=== PATIENT | female | born 1950 | race Hispanic/Latino ===

== ENCOUNTER 2016-08-20 20:37 | Inpatient (IN) | payer OTHER, MEDICARE ==
[2016-08-20 20:59] LABS: BASO # 0.1 K/uL (0.0-0.2); BASO % 1.3 % (0.0-2.0); EOS % 0.3 % (0.0-4.0); HEMOGLOBIN 11.9 g/dL (11.0-16.0); LYMPH # 2.1 K/uL (1.0-4.3); LYMPH % 20.7 % (20.0-40.0); MEAN CELL VOLUME 98.6 fL (81.0-99.0); MEAN CORPUSCULAR HEMOGLOBIN 33.5 pg (27.0-31.0); MEAN CORPUSCULAR HGB CONC 33.9 g/dL (33.0-37.0); MEAN PLATELET VOLUME 8.1 fL (7.2-11.7); MONO # 0.5 K/uL (0.0-0.8); MONO % 5.4 % (0.0-10.0); NEUT # 7.3 K/uL (1.8-7.0); NEUT % 72.3 % (50.0-75.0); RBC 3.55 Mil/uL (3.80-5.20); RED CELL DISTRIBUTION WIDTH 13.1 % (11.5-14.5)
--- NOTE | 2016-08-20 21:01 | C.PDOC ---
History Of Present Illness 66 y/o with Hx of Psych illness brought to ED by ALS with complaints of mid sternal chest pain while eating dinner with associated diaphoresis, nausea and sob. Pain is rated 9/10 and patient states never having this pain before. Patient states pain was persistent and called 911 for help. Patient reports taking 4 baby aspirin [employer]. Patient is a past smoker and quit 02/28/16 and denies past cardiac disease or lung disease. Patient denies fever, chills, v/d or any other complaints at this time. Time Seen by Provider: 08/20/16 20:46 Chief Complaint (Nursing): Chest Pain History Per: Patient History/Exam Limitations: no limitations Onset/Duration Of Symptoms: Hrs Current Symptoms Are (Timing): Still Present Past Medical History Reviewed: Historical Data, Nursing Documentation, Vital Signs Vital Signs: Last Vital Signs Temp 98.5 F 08/20/16 21:02 Pulse 66 08/20/16 21:02 Resp 16 08/20/16 21:02 BP 144/55 L 08/20/16 21:02 Pulse Ox 100 08/20/16 21:09 - Medical History PMH: Bipolar Disorder, Depression Family History: States: No Known Family Hx - Social History Hx Alcohol Use: Yes Hx Substance Use: No Review Of Systems Except As Marked, All Systems Reviewed And Found Negative. Constitutional: Positive for: Sweats. Negative for: Fever, Chills Cardiovascular: Positive for: Chest Pain. Negative for: Palpitations Respiratory: Positive for: Shortness of Breath Gastrointestinal: Positive for: Nausea. Negative for: Vomiting, Diarrhea Skin: Negative for: Rash Physical Exam - Physical Exam Appears: Other (Uncomfortable, In pain) Skin: Normal Color, Warm Head: Atraumatic, Normacephalic Chest: Symmetrical, Tenderness (Midsternal chest ) Cardiovascular: Rhythm Regular, No Murmur Respiratory: Normal Breath Sounds, No Rales, No Rhonchi, Wheezing (Mild Wheezing ) Gastrointestinal/Abdominal: Soft, Tenderness (Upper abdomen Tenderness), No Guarding, No Rebound Extremity: Normal ROM, Capillary Refill (<2 seconds) Neurological/Psych: Oriented x3, Normal Speech ED Course And Treatment - Laboratory Results Result Diagrams: 08/20/16 20:51 08/20/16 20:51 Lab Interpretation: No Acute Changes ECG: Interpreted By Me ECG Rhythm: Sinus Rhythm ECG Interpretation: Normal Rate From EC (bpm) O2 Sat by Pulse Oximetry: 100 (ra) Pulse Ox Interpretation: Normal Progress Note: Patient continues to have chest pain after NTG SL. repeat EKG unchanged. Morphine 1mg IV ordered. Reevaluation Time: 22:07 Reassessment Condition: Improved - Physician Consult Information Time Consulting Physician Contacted: 22:07 Physician Contacted: Iraida Balbuena Outcome Of Conversation: Patient to be admitted for chest pain observation. Disposition - Disposition Disposition: HOSPITALIZED Disposition Time: 22:08 Condition: IMPROVED - POA Present On Arrival: None - Clinical Impression Clinical Impression: Chest pain - Scribe Statement The provider has reviewed the documentation as recorded by the Scribe Stew Gong All medical record entries made by the Melissaibe were at my direction and personally dictated by me. I have reviewed the chart and agree that the record accurately reflects my personal performance of the history, physical exam, medical decision making, and the department course for this patient. I have also personally directed, reviewed, and agree with the discharge instructions and disposition.
[2016-08-20 21:07] LABS: ALBUMIN 4.1 g/dL (3.5-5.0)
[2016-08-20 21:10] LABS: GFR AFRICAN-AMERICAN > 60; GFR NON-AFRICAN AMERICAN > 60
[2016-08-20 21:11] LABS: ALB/GLOB RATIO 1.3 (1.0-2.1); ALT/SGPT 33 U/L (9-52); AST/SGOT 25 U/L (14-36); BLOOD UREA NITROGEN 26 mg/dL (7-17); CALCIUM 8.9 mg/dl (8.6-10.4)
[2016-08-20 21:12] LABS: HDL CHOLESTEROL 54 mg/dL (30-70)
[2016-08-20 21:20] LABS: CK-MB 1.16 ng/mL (0.0-3.38)
[2016-08-20 21:25] LABS: LDL CHOLESTEROL 158 mg/dL (0-129)
[2016-08-21 05:48] LABS: FREE T4 0.58 ng/dL (0.78-2.19)
[2016-08-21] MEDS ORDERED: QUEtiapine 200 mg XR Tab PO SCH (10:00)
[2016-08-21 10:02] LABS: TROPONIN I 9.88 ng/mL (0.00-0.120)
[2016-08-21] MEDS ORDERED: Heparin25000 units/250ml 1/2NS 25,000 UNITS/250 ML BAG IV PRN (10:27)
--- NOTE | 2016-08-21 10:36 | RAD ---
HISTORY: chest pain COMPARISON: No prior. FINDINGS: LUNGS: Diffuse increased interstitial lung markings. Biapical pleural thickening. Right hilar prominence. PLEURA: No significant pleural effusion identified, no pneumothorax apparent. CARDIOVASCULAR: Normal. OSSEOUS STRUCTURES: Postsurgical changes in the cervical spine. Degenerative changes in the thoracic spine. VISUALIZED UPPER ABDOMEN: Normal. OTHER FINDINGS: None. IMPRESSION: Diffuse increased interstitial lung markings. Biapical pleural thickening. Right hilar prominence.
--- NOTE | 2016-08-21 10:41 | CP.PCM.CON ---
<Brit Morales - Last Filed: 08/21/16 19:01> History of Present Illness - History of Present Illness History of Present Illness: ICU Consult Note Reason for consult: Elevated troponin 66F PMHx of anxiety, bipolar, MDD, mitrala valve prolapse presented with chest pain that started the night before when patient was eating dinner. She reported pain was 10/10 felt like an accordian squeezing and radiated to both arms b/l and down her back. Patient had 2 episodes of nonbloody nonbilious emesis and patient had associated diaphoresis. Patient was brought in by ALS and admitted to TELE. Patient's troponin on admission was negative but 4am troponin was 9.88 which is why patient was started on heparin gtt and moved to ICU. Patient's repeat troponin is 5.0800. EKG showed sinus rhythm with inferior and lateral t- wave inversions suggestive of ischemia and stat echo done showed EF 45-50%, infero-posterior hypokinesia, mild mr, Grade 1 Diastolic dysfunction. Patient admitted to 40 year tobacco abuse in the past and quit 2014. She denied history of HTN or hyperlipidemia. Patient was seen by Dr. Katz and is to be transferred to [facility] [place] in the AM 08/22 for cath and PCI. Currently patient is resting in bed and comfortably. Patient is on heparin gtt and nitroglycerin gtt. She denies any acute chest pain but is complaining of headaches. ROS negative for dizziness, blurry vision, ringing of the ears, chest pain, palpitations, SOB, cough, abd pain, nausea, vomiting, bowel/bladder complaints, pain/swelling in her legs b/l. 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 ROS negative for dizziness, blurry vision, ringing of the ears, chest pain, palpitations, SOB , cough, abd pain, nausea, vomiting, bowel/bladder complaints, pain/swelling in her legs b/l. Review of Systems - Constitutional Constitutional: As Per HPI, Headache. absent: Chills, Fever - EENT Eyes: As Per HPI. absent: Blurred Vision Ears: As Per HPI. absent: Tinnitus, Dizziness Nose/Mouth/Throat: As Per HPI. absent: Sore Throat - Cardiovascular Cardiovascular: As Per HPI. absent: Chest Pain, Dyspnea, Palpitations - Respiratory Respiratory: As Per HPI. absent: Cough, Dyspnea, Chest Congestion - Gastrointestinal Gastrointestinal: As Per HPI. absent: Abdominal Pain, Constipation, Diarrhea, Nausea, Vomiting - Genitourinary Genitourinary: As Per HPI. absent: Dysuria, Hematuria - Musculoskeletal Musculoskeletal: As Per HPI, Neck Pain. absent: Numbness, Tingling - Integumentary Integumentary: As Per HPI. absent: Rash - Neurological Neurological: As Per HPI, Headaches. absent: Dizziness, Tingling - Psychiatric Psychiatric: As Per HPI, Anxiety, Depression - Endocrine Endocrine: As Per HPI. absent: Palpitations, Polydipsia, Polyphagia, Polyuria - Hematologic/Lymphatic Hematologic: As Per HPI. absent: Easy Bleeding, Easy Bruising, Lymphadenopathy Past Patient History - Past Medical History & Family History Past Medical History?: Yes - Past Social History Smoking Status: Former Smoker - CARDIAC Hx Mitral Valve Prolapse: Yes - PULMONARY Hx Respiratory Disorders: No - NEUROLOGICAL Hx Neurological Disorder: No - HEENT Hx HEENT Problems: No - RENAL Hx Chronic Kidney Disease: No - ENDOCRINE/METABOLIC Hx Endocrine Disorders: No - HEMATOLOGICAL/ONCOLOGICAL Hx Blood Disorders: No - INTEGUMENTARY Hx Dermatological Problems: No - MUSCULOSKELETAL/RHEUMATOLOGICAL Hx Falls: Yes - GASTROINTESTINAL Hx Clostridium Difficile: Yes Hx Gall Bladder Disease: Yes - GENITOURINARY/GYNECOLOGICAL Hx Genitourinary Disorders: No - PSYCHIATRIC Hx Substance Use: No - SURGICAL HISTORY Hx Cholecystectomy: Yes Hx Musculoskeletal Surgery: Yes (SPINE Sx.2007 and 2009) Other/Comment: Partial Colectomy.03-06-14,Reversal Colon 06/2014,Rt. Hernia Sx 2010,Rt. Rotator Cuff Sx .Left labrial Sx (Left Arm )2010, - ANESTHESIA Hx Anesthesia: Yes Hx Anesthesia Reactions: No Hx Malignant Hyperthermia: No Has any member of the family had a problem w/ anesthesia?: No Meds Allergies/Adverse Reactions: Allergies Allergy/AdvReac Type Severity Reaction Status Date / Time No Known Allergies Allergy Unverified 08/20/16 20:42 - Medications Medications: Current Medications Clonazepam (Klonopin) 0.5 mg PO Q8H [facility] Last Admin: 08/21/16 08:45 Dose: 0.5 mg Heparin Sodium (Porcine) (Heparin) 5,000 units SC Q12 [facility] Heparin Sodium/Sodium Chloride (Heparin 28796 Units/250ml 1/2 Normal Saline) 25 ,000 units in 250 mls @ 8.981 mls/hr IV .Q24H PRN; Protocol; 12 UNITS/KG/HR PRN Reason: PROTOCOL Nitroglycerin (Nitrostat Sl Tab) 0.4 mg SL Q5M PRN PRN Reason: Pain, Mild (1-3) Last Admin: 08/20/16 21:05 Dose: 0.4 mg Quetiapine Fumarate (Seroquel Xr) 600 mg PO DAILY [facility] Trazodone HCl (Desyrel) 100 mg PO HS [facility] Last Admin: 08/21/16 09:17 Dose: Not Given Venlafaxine HCl (Effexor Xr) 75 mg PO DAILY [facility] Physical Exam - Constitutional Appears: Well, Non-toxic - Head Exam Head Exam: ATRAUMATIC, NORMAL INSPECTION, NORMOCEPHALIC - Eye Exam Eye Exam: EOMI, Normal appearance, PERRL. absent: Conjunctival injection, Scleral icterus Pupil Exam: NORMAL ACCOMODATION - ENT Exam ENT Exam: Mucous Membranes Moist - Neck Exam Neck exam: Positive for: Normal Inspection - Respiratory Exam Respiratory Exam: Clear to Auscultation Bilateral, NORMAL BREATHING PATTERN. absent: Accessory Muscle Use, Rales, Rhonchi, Wheezes, Respiratory Distress - Cardiovascular Exam Cardiovascular Exam: REGULAR RHYTHM, RRR, +S1, +S2. absent: Systolic Murmur - GI/Abdominal Exam GI & Abdominal Exam: Normal Bowel Sounds, Soft. absent: Firm, Guarding, Rigid, Tenderness - Extremities Exam Extremities exam: Positive for: normal capillary refill, normal inspection, pedal pulses present. Negative for: pedal edema, tenderness - Back Exam Back exam: NORMAL INSPECTION. absent: rash noted, tenderness - Neurological Exam Neurological exam: Alert, CN II-XII Intact, Oriented x3 - Psychiatric Exam Psychiatric exam: Normal Affect, Normal Mood - Skin Skin Exam: Dry, Intact, Normal Color, Warm Results - Vital Signs Recent Vital Signs: Last Vital Signs Temp 98.2 F 08/21/16 04:00 Pulse 59 L 08/21/16 08:00 Resp 20 08/21/16 04:00 BP 105/64 08/21/16 04:00 Pulse Ox 95 08/20/16 23:05 - Labs Result Diagrams: 08/21/16 12:34 08/21/16 12:34 Labs: Laboratory Results - last 24 hr 08/21/16 08/21/16 04:31 04:31 Troponin I 9.8800 H* Triglycerides 62 D Cholesterol 252 H LDL Cholesterol Direct 163 H HDL Cholesterol 63 Free T4 0.58 L TSH 3rd Generation 0.53 Assessment & Plan - Assessment and Plan (Free Text) Assessment: 66F PMHx of anxiety, bipolar, MDD, mitrala valve prolapse presented with chest pain that started the night before. Transferred to ICU for elevated troponin. Plan: Neuro -AO x 3 -hx of headaches -Tylenol 650mg po q6 prn h/a Cardiovascular -NSTEMI -Troponin 9.88--> 5.080 -EKG: sinus rhythm with inferior and lateral t-wave inversions suggestive of ischemia -Echo: EF 45-50%, infero-posterior hypokinesia, mild mr, Grade 1 Diastolic dysfunction -Elevated Lipid panel T Cholesterol: 252 LDL: 163 HDL: 63 -Thyroid studies WNL -T4: 0.58 -TSH: 0.53 -Patient for transfer to [facility] [place] tomorrow 08/22 for cath and PCI -ASA 81mg po dialy -Coreg 3.125mg po bid -Heparin gtt -Nitro gtt -Brilinta 90mg po bid -Crestor 20mg po hs -Dr. Katz cardio following Pulm -no acute issues -breathing spontaneously on NC 2L GI -no acute issues Heme -no acute issues -PT/INR ordered for AM Renal -no acute issues Endo -no acute issues -HgbA1c 5.8 Psych -hx of MDD, bipolar, anxiety -Effexor xr 75mg po daily -Trazodone 100mg po hs -Seroquel 600mg po hs -Clonazepam 0.5mg po q8 GI ppx: Pepcid 20mg po bid VTE ppx: Heparin gtt; SCD c/i until patient venous dopplers done Code Status: full code Case discussed with Dr. Marge Morales PGY2 <Matt Bird - Last Filed: 08/21/16 20:47> Meds - Medications Medications: Current Medications Acetaminophen (Tylenol 325mg Tab) 650 mg PO Q6 PRN PRN Reason: Headache Last Admin: 08/21/16 17:46 Dose: 650 mg Aspirin (Aspirin Chewable) 81 mg PO DAILY [facility] Carvedilol (Coreg) 3.125 mg PO BID [facility] Clonazepam (Klonopin) 0.5 mg PO Q8H [facility] Last Admin: 08/21/16 14:57 Dose: 0.5 mg Famotidine (Pepcid) 20 mg PO BID [facility] Last Admin: 08/21/16 17:48 Dose: 20 mg Heparin Sodium/Sodium Chloride (Heparin 99746 Units/250ml 1/2 Normal Saline) 25 ,000 units in 250 mls @ 8.981 mls/hr IV .Q24H PRN; Protocol; 12 UNITS/KG/HR PRN Reason: PROTOCOL Last Admin: 08/21/16 10:55 Dose: 12 units/kg/hr, 8.981 mls/hr Nitroglycerin/Dextrose (Nitroglycerin 50 Mg/250 Ml D5w) 50 mg in 250 mls @ 7.5 mls/hr IV .Q24H [facility]; 25 MCG/MIN PRN Reason: Protocol Last Admin: 08/21/16 12:00 Dose: 25 mcg/min, 7.5 mls/hr Morphine Sulfate (Morphine) 1 mg IV ONCE ONE Stop: 08/21/16 20:46 Nitroglycerin (Nitrostat Sl Tab) 0.4 mg SL Q5M PRN PRN Reason: Pain, Mild (1-3) Last Admin: 08/21/16 11:40 Dose: 0.4 mg Quetiapine Fumarate (Seroquel Xr) 600 mg PO HS [facility] Rosuvastatin Calcium (Crestor) 20 mg PO HS [facility] Ticagrelor (Brilinta) 90 mg PO BID [facility] Trazodone HCl (Desyrel) 100 mg PO HS [facility] Last Admin: 08/21/16 09:17 Dose: Not Given Venlafaxine HCl (Effexor Xr) 75 mg PO DAILY [facility] Last Admin: 08/21/16 11:00 Dose: Not Given Results - Vital Signs Recent Vital Signs: Last Vital Signs Temp 97.4 F L 08/21/16 16:00 Pulse 69 08/21/16 18:30 Resp 11 L 08/21/16 18:30 BP 128/79 08/21/16 18:17 Pulse Ox 97 08/21/16 18:30 - Labs Result Diagrams: 08/21/16 12:34 08/21/16 12:34 Labs: Laboratory Results - last 24 hr 08/21/16 08/21/16 08/21/16 12:34 12:34 18:57 WBC 7.6 RBC 3.67 L Hgb 12.1 Hct 36.4 MCV 99.2 H MCH 33.1 H MCHC 33.3 RDW 13.2 Plt Count 253 MPV 8.2 APTT 73 H D Sodium 137 Potassium 3.6 Chloride 101 Carbon Dioxide 29 Anion Gap 11 BUN 16 Creatinine 0.5 L Est GFR ( Amer) > 60 Est GFR (Non-Af Amer) > 60 Random Glucose 89 Calcium 8.8 Phosphorus 3.6 Magnesium 2.0 Total Bilirubin 0.4 AST 63 H D ALT 29 Alkaline Phosphatase 79 Total Creatine Kinase CK-MB (Mass) Troponin I 5.0800 H* Troponin I, Quant Total Protein 6.7 Albumin 3.7 Globulin 3.1 Albumin/Globulin Ratio 1.2 TSH 3rd Generation 0.98 08/21/16 18:57 WBC RBC Hgb Hct MCV MCH MCHC RDW Plt Count MPV APTT Sodium Potassium Chloride Carbon Dioxide Anion Gap BUN Creatinine Est GFR ( Amer) Est GFR (Non-Af Amer) Random Glucose Calcium Phosphorus Magnesium Total Bilirubin AST ALT Alkaline Phosphatase Total Creatine Kinase 272 H CK-MB (Mass) 14.1 H Troponin I Troponin I, Quant 3.5300 H* Total Protein Albumin Globulin Albumin/Globulin Ratio TSH 3rd Generation Attending/Attestation - Attestation I have personally seen and examined this patient.: Yes I have fully participated in the care of the patient.: Yes I have reviewed all pertinent clinical information: Yes Notes (Text): 08/21/16 20:47 Today: July The Patient was seen and examined at the bedside, Medical records reviewed, all clinical/lab/hemodynamic/radiographic data were reviewed and management issues were discussed and formulated, Events reviewed Pain issues, skin care, head of the bed elevation, glycemic control were addressed. Agree with above treatment plans as transcribed in Dr. Brit holliday
[2016-08-21] MEDS: Venlafaxine 75 mg ER Cap PO SCH (11:00)
--- NOTE | 2016-08-21 11:50 | CP.PCM.PN ---
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 Pt seen and examined today c/o sub sternal chest pain describes pressure like pain scale 7/10 , non radiating, denies any sob, dizziness, palpitations , diaphoresis, N/V Objective - Vital Signs/Intake and Output Vital Signs (last 24 hours): Temp Pulse Resp BP Pulse Ox 98.2 F 59 L 20 105/64 95 08/21/16 04:00 08/21/16 08:00 08/21/16 04:00 08/21/16 04:00 08/20/16 23:05 Intake and Output: 08/21/16 08/21/16 06:59 18:59 Intake Total 120 Balance 120 - Medications Medications: Current Medications Clonazepam (Klonopin) 0.5 mg PO Q8H [facility] Last Admin: 08/21/16 08:45 Dose: 0.5 mg Heparin Sodium (Porcine) (Heparin) 5,000 units SC Q12 [facility] Last Admin: 08/21/16 10:49 Dose: Not Given Heparin Sodium/Sodium Chloride (Heparin 58084 Units/250ml 1/2 Normal Saline) 25 ,000 units in 250 mls @ 8.981 mls/hr IV .Q24H PRN; Protocol; 12 UNITS/KG/HR PRN Reason: PROTOCOL Last Admin: 08/21/16 10:55 Dose: 12 units/kg/hr, 8.981 mls/hr Nitroglycerin (Nitrostat Sl Tab) 0.4 mg SL Q5M PRN PRN Reason: Pain, Mild (1-3) Last Admin: 08/21/16 11:40 Dose: 0.4 mg Quetiapine Fumarate (Seroquel Xr) 600 mg PO DAILY [facility] Trazodone HCl (Desyrel) 100 mg PO HS [facility] Last Admin: 08/21/16 09:17 Dose: Not Given Venlafaxine HCl (Effexor Xr) 75 mg PO DAILY [facility] - Labs Labs: PT 11.0 SECONDS (9.7-12.2) 08/20/16 20:51 INR 1.0 08/20/16 20:51 APTT 28 SECONDS (21-34) 08/20/16 20:51 - Constitutional Appears: Well, No Acute Distress - ENT Exam ENT Exam: Mucous Membranes Moist - Respiratory Exam Respiratory Exam: Clear to Ausculation Bilateral, NORMAL BREATHING PATTERN - Cardiovascular Exam Cardiovascular Exam: REGULAR RHYTHM, +S1, +S2 - Neurological Exam Neurological Exam: Alert, Awake, Oriented x3 Assessment and Plan - Assessment and Plan (Free Text) Assessment: Assessment 66 yr old female admitted for chest pain 1st troponin - negative ((0.0170) 2nd troponin 9.6604 Plan stat EKG ASPIRIN 325 MG po stat brilinta 180 mg po stat will start heparin drip ICU eval The above plan discussed with Dr. Judge
[2016-08-21] MEDS ORDERED: Nitroglycerin 50mg in D5W 50 MG/250 ML BOTTLE IV SCH (12:00)
[2016-08-21 12:44] LABS: HEMOGLOBIN 12.1 g/dL (11.0-16.0); MEAN CELL VOLUME 99.2 fL (81.0-99.0); MEAN CORPUSCULAR HEMOGLOBIN 33.1 pg (27.0-31.0); MEAN CORPUSCULAR HGB CONC 33.3 g/dL (33.0-37.0); MEAN PLATELET VOLUME 8.2 fL (7.2-11.7); RBC 3.67 Mil/uL (3.80-5.20); RED CELL DISTRIBUTION WIDTH 13.2 % (11.5-14.5); WHITE BLOOD COUNT 7.6 K/uL (4.8-10.8)
[2016-08-21 12:46] LABS: ALBUMIN 3.7 g/dL (3.5-5.0)
[2016-08-21 12:48] LABS: GFR AFRICAN-AMERICAN > 60; GFR NON-AFRICAN AMERICAN > 60
[2016-08-21 12:49] LABS: ALB/GLOB RATIO 1.2 (1.0-2.1); AST/SGOT 63 U/L (14-36); BLOOD UREA NITROGEN 16 mg/dL (7-17)
[2016-08-21 12:50] LABS: ALT/SGPT 29 U/L (9-52); CALCIUM 8.8 mg/dl (8.6-10.4)
--- NOTE | 2016-08-21 18:08 | CP.PCM.CON ---
History of Present Illness - History of Present Illness History of Present Illness: 66 y/o female presetns with 24-48 hours of cresendo angina (chest discomfort, B/ L arm pain, funny feeling of weakness and fatigue) HTN mild occasional not on RX Lipids: untreated ex smoker Father had CABG age 60's Other: partial hemicholectomy after c-diff colitis Recent Gall bladder surgery No IVDA, ETOH abuse Review of Systems - Review of Systems All systems: reviewed and no additional remarkable complaints except Past Patient History - Past Medical History & Family History Past Medical History?: Yes - Past Social History Smoking Status: Former Smoker - CARDIAC Hx Mitral Valve Prolapse: Yes - PULMONARY Hx Respiratory Disorders: No - NEUROLOGICAL Hx Neurological Disorder: No - HEENT Hx HEENT Problems: No - RENAL Hx Chronic Kidney Disease: No - ENDOCRINE/METABOLIC Hx Endocrine Disorders: No - HEMATOLOGICAL/ONCOLOGICAL Hx Blood Disorders: No - INTEGUMENTARY Hx Dermatological Problems: No - MUSCULOSKELETAL/RHEUMATOLOGICAL Hx Falls: Yes - GASTROINTESTINAL Hx Clostridium Difficile: Yes Hx Gall Bladder Disease: Yes - GENITOURINARY/GYNECOLOGICAL Hx Genitourinary Disorders: No - PSYCHIATRIC Hx Substance Use: No - SURGICAL HISTORY Hx Cholecystectomy: Yes Hx Musculoskeletal Surgery: Yes (SPINE Sx.2007 and 2009) Other/Comment: Partial Colectomy.03-06-14,Reversal Colon 06/2014,Rt. Hernia Sx 2010,Rt. Rotator Cuff Sx .Left labrial Sx (Left Arm )2010, - ANESTHESIA Hx Anesthesia: Yes Hx Anesthesia Reactions: No Hx Malignant Hyperthermia: No Has any member of the family had a problem w/ anesthesia?: No Meds Allergies/Adverse Reactions: Allergies Allergy/AdvReac Type Severity Reaction Status Date / Time No Known Allergies Allergy Unverified 08/20/16 20:42 - Medications Medications: Current Medications Acetaminophen (Tylenol 325mg Tab) 650 mg PO Q6 PRN PRN Reason: Headache Last Admin: 08/21/16 17:46 Dose: 650 mg Clonazepam (Klonopin) 0.5 mg PO Q8H [facility] Last Admin: 08/21/16 14:57 Dose: 0.5 mg Famotidine (Pepcid) 20 mg PO BID [facility] Last Admin: 08/21/16 17:48 Dose: 20 mg Heparin Sodium/Sodium Chloride (Heparin 06386 Units/250ml 1/2 Normal Saline) 25 ,000 units in 250 mls @ 8.981 mls/hr IV .Q24H PRN; Protocol; 12 UNITS/KG/HR PRN Reason: PROTOCOL Last Admin: 08/21/16 10:55 Dose: 12 units/kg/hr, 8.981 mls/hr Nitroglycerin/Dextrose (Nitroglycerin 50 Mg/250 Ml D5w) 50 mg in 250 mls @ 7.5 mls/hr IV .Q24H [facility]; 25 MCG/MIN PRN Reason: Protocol Last Admin: 08/21/16 12:00 Dose: 25 mcg/min, 7.5 mls/hr Nitroglycerin (Nitrostat Sl Tab) 0.4 mg SL Q5M PRN PRN Reason: Pain, Mild (1-3) Last Admin: 08/21/16 11:40 Dose: 0.4 mg Quetiapine Fumarate (Seroquel Xr) 600 mg PO HS [facility] Trazodone HCl (Desyrel) 100 mg PO HS [facility] Last Admin: 08/21/16 09:17 Dose: Not Given Venlafaxine HCl (Effexor Xr) 75 mg PO DAILY [facility] Last Admin: 08/21/16 11:00 Dose: Not Given Physical Exam - Constitutional Appears: No Acute Distress - Head Exam Head Exam: ATRAUMATIC, NORMAL INSPECTION, NORMOCEPHALIC - Eye Exam Eye Exam: EOMI, Normal appearance, PERRL - ENT Exam ENT Exam: Mucous Membranes Moist - Neck Exam Neck exam: Positive for: Normal Inspection - Respiratory Exam Respiratory Exam: Clear to Auscultation Bilateral, NORMAL BREATHING PATTERN. absent: Rales, Rhonchi, Wheezes - Cardiovascular Exam Cardiovascular Exam: REGULAR RHYTHM, +S1, +S2. absent: +S4, Systolic Murmur - GI/Abdominal Exam GI & Abdominal Exam: Normal Bowel Sounds, Soft. absent: Tenderness - Extremities Exam Extremities exam: Positive for: normal inspection, pedal pulses present. Negative for: calf tenderness, pedal edema - Neurological Exam Neurological exam: Alert, CN II-XII Intact, Oriented x3 - Psychiatric Exam Psychiatric exam: Normal Affect, Normal Mood - Skin Skin Exam: Normal Color, Warm Results - Vital Signs Recent Vital Signs: Last Vital Signs Temp 97.4 F L 08/21/16 16:00 Pulse 68 08/21/16 16:10 Resp 14 08/21/16 16:10 BP 104/45 L 08/21/16 16:03 Pulse Ox 98 08/21/16 16:10 - Labs Result Diagrams: 08/21/16 12:34 08/21/16 12:34 Labs: Laboratory Results - last 24 hr 08/21/16 08/21/16 12:34 12:34 WBC 7.6 RBC 3.67 L Hgb 12.1 Hct 36.4 MCV 99.2 H MCH 33.1 H MCHC 33.3 RDW 13.2 Plt Count 253 MPV 8.2 Sodium 137 Potassium 3.6 Chloride 101 Carbon Dioxide 29 Anion Gap 11 BUN 16 Creatinine 0.5 L Est GFR ( Amer) > 60 Est GFR (Non-Af Amer) > 60 Random Glucose 89 Calcium 8.8 Phosphorus 3.6 Magnesium 2.0 Total Bilirubin 0.4 AST 63 H D ALT 29 Alkaline Phosphatase 79 Troponin I 5.0800 H* Total Protein 6.7 Albumin 3.7 Globulin 3.1 Albumin/Globulin Ratio 1.2 TSH 3rd Generation 0.98 - EKG Data EKG Interpreted by: Myself EKG shows normal: Sinus rhythm (inferior and lateral t-wave inversions suggestive of ischemia) Assessment & Plan - Assessment and Plan (Free Text) Assessment: 1. NSTEMI 2. Peak trop 9 now 5 3. Echo directly seen by me: EF 45-50%, infero-posterior hypokinesia, mild mr, Grade 1 Diastolic dysfunction. ASA 81 Brilinta 90 BID (Loaded with 180) Heparin GTT NTG GTT add coreg 3.125 BID add cresto 20 daily Patient will benefit from Tx to [facility] for cath and PCI as high liklihood for need of intervention in this setting. D/W Patient, spouce and ICU team: Keep NPO after midnight : may give a light liquid breakfast in AM as possibly cath will be after 1:00pm due to scheduling.
[2016-08-21 19:20] LABS: CK-MB 14.1 ng/mL (0.0-3.38)
[2016-08-21] MEDS: QUEtiapine 200 mg XR Tab PO SCH (22:03)
--- NOTE | 2016-08-21 22:30 | CARD ---
APPROVED REPORT EKG Measurement Heart [id number] <Conclusion> Normal sinus rhythm ST & T wave abnormality, consider inferolateral ischemia Abnormal ECG
--- NOTE | 2016-08-21 22:32 | CARD ---
APPROVED REPORT EKG Measurement Heart [id number] <Conclusion> Normal sinus rhythm Inferior infarct, age undetermined ST & T wave abnormality, consider anterolateral ischemia Abnormal ECG
--- NOTE | 2016-08-21 22:35 | CARD ---
APPROVED REPORT EKG Measurement Heart [id number] <Conclusion> Normal sinus rhythm T wave abnormality, consider inferior ischemia T wave abnormality, consider anterolateral ischemia Abnormal ECG
--- NOTE | 2016-08-22 06:13 | CARD ---
APPROVED REPORT EXAM: Two-dimensional and M-mode echocardiogram with Doppler and color Doppler. Other Information Quality : GoodRhythm : NSR INDICATION Dyspnea Chest Pain NSTEMI M-Mode DIMENSIONS RVDd0.98 (2.1-3.2cm)Left Atrium (MM)3.45 (2.5-4.0cm) IVSd0.78 (0.7-1.1cm)Aortic Root2.77 (2.2-3.7cm) LVDd5.08 (4.0-5.6cm)Aortic Cusp Exc.1.92 (1.5-2.0cm) PWd0.85 (0.7-1.1cm)FS (%) 39 % LVDs3.09 (2.0-3.8cm)LVEF (%)69 (>50%) Mitral Valve MV E Xtmumubg57.6cm/sMV A Nhfgyihr163.0cm/sE/A ratio0.8 TDI E/Lateral E'0.0E/Medial E'0.0 Tricuspid Valve TR Peak Snqeolpk058tq/sTR Peak Gr.[id number] LEFT VENTRICLE The left ventricle is normal size. There is normal left ventricular wall thickness. The left ventricular function is normal. The left ventricular ejection fraction is within the normal range. The Ejection Fraction is 55-60%. There is borderline dyskinesis in the basal anterior wall. The left ventricular diastolic function is normal. No left ventricle thrombus noted on this study. There is no ventricular septal defect visualized. There is no left ventricular aneurysm. There is no mass noted in the left ventricle. RIGHT VENTRICLE The right ventricle is normal size. There is normal right ventricular wall thickness. The right ventricular systolic function is normal. ATRIA The left atrium size is normal. The right atrium size is normal. The interatrial septum is intact with no evidence for an atrial septal defect. AORTIC VALVE The aortic valve is normal in structure and function. There is trace aortic regurgitation. There is no aortic valvular stenosis. There is no aortic valvular vegetation. MITRAL VALVE The mitral valve is normal in structure and function. There is no evidence of mitral valve prolapse. There is no mitral valve stenosis. There is no mitral valve regurgitation noted. TRICUSPID VALVE The tricuspid valve is normal in structure and function. There is no tricuspid valve regurgitation noted. There is no tricuspid valve prolapse or vegetation. There is no tricuspid valve stenosis. PULMONIC VALVE The pulmonary valve is normal in structure and function. There is no pulmonic valvular regurgitation. There is no pulmonic valvular stenosis. GREAT VESSELS The aortic root is normal in size. The ascending aorta is normal in size. The pulmonary artery is normal. The IVC is normal in size and collapses >50% with inspiration. PERICARDIAL EFFUSION The pericardium appears normal. There is no pleural effusion. <Conclusion> The left ventricle is normal size. There is normal left ventricular wall thickness. The left ventricular ejection fraction is within the normal range. The Ejection Fraction is 55-60%. There is borderline dyskinesis in the basal anterior wall.
--- NOTE | 2016-08-22 06:36 | CARD ---
APPROVED REPORT EKG Measurement Heart [id number] <Conclusion> Normal sinus rhythm Nonspecific ST abnormality Abnormal ECG
[2016-08-22 06:49] LABS: BASO % 0.6 % (0.0-2.0); EOS # 0.1 K/uL (0.0-0.7); EOS % 1.4 % (0.0-4.0); HEMOGLOBIN 12.1 g/dL (11.0-16.0); LYMPH # 2.7 K/uL (1.0-4.3); LYMPH % 43.7 % (20.0-40.0); MEAN CELL VOLUME 99.5 fL (81.0-99.0); MEAN CORPUSCULAR HEMOGLOBIN 33.3 pg (27.0-31.0); MEAN CORPUSCULAR HGB CONC 33.4 g/dL (33.0-37.0); MEAN PLATELET VOLUME 8.4 fL (7.2-11.7); MONO # 0.5 K/uL (0.0-0.8); MONO % 8.2 % (0.0-10.0); NEUT # 2.8 K/uL (1.8-7.0); NEUT % 46.1 % (50.0-75.0); NRBC % 0.1 % (0.0-2.0); RBC 3.63 Mil/uL (3.80-5.20); RED CELL DISTRIBUTION WIDTH 13.5 % (11.5-14.5); WHITE BLOOD COUNT 6.1 K/uL (4.8-10.8)
[2016-08-22 06:59] LABS: ALBUMIN 3.6 g/dL (3.5-5.0)
[2016-08-22 07:02] LABS: ALB/GLOB RATIO 1.3 (1.0-2.1); AST/SGOT 52 U/L (14-36); GFR AFRICAN-AMERICAN > 60; GFR NON-AFRICAN AMERICAN > 60
[2016-08-22 07:03] LABS: ALT/SGPT 20 U/L (9-52); BLOOD UREA NITROGEN 14 mg/dL (7-17); CALCIUM 8.6 mg/dl (8.6-10.4); MAGNESIUM 2.2 mg/dL (1.6-2.3)
[2016-08-22 07:15] LABS: PROTHROMBIN TIME 11.4 SECONDS (9.7-12.2)
--- NOTE | 2016-08-22 07:22 | CP.CCUPN ---
<Brit Morales - Last Filed: 08/22/16 08:07> CCU Subjective - Physician Review Subjective (Free Text): 08/22/16 08:09 Patient seen and examined at bedside. As per nursing no acute events overnight. Patient was resting comfortably in bed and sleeping when I saw her. She did complain of headaches and received morphine 1 time that helped. Patient denied dizziness, blurry vision, tinnitus, chest pain, palpitations, SOB, cough, abd pain, nausea, vomiting, bowel/bladder complaints, pain/swelling in her legs b/ l. VSS. Patient is NPO after breakfast for cardiac cath and possible PCI this afternoon with Dr. [place] [facility] [place] to return to [facility] after procedure. Tridil gtt was discontinued. Heparin gtt held as repeat PTT this AM was 129. Will f/u repeat PTT at 8:45am and restart/hold as per protocol. CCU Objective - Vital Signs / Intake & Output Vital Signs (Last 4 hours): Vital Signs Temp Pulse Resp BP Pulse Ox 08/22/16 06:43 62 15 108/49 L 99 08/22/16 06:00 59 L 18 99 08/22/16 05:43 64 16 87/45 L 98 08/22/16 04:43 59 L 15 90/41 L 98 08/22/16 04:00 98.4 F 59 L 13 98 08/22/16 03:44 66 16 90/42 L 96 08/22/16 03:29 63 14 80/39 L 95 Intake and Output (Last 8hrs): Intake & Output 08/21/16 08/22/16 08/22/16 22:59 06:59 14:59 Intake Total 1000.0 104.5 Output Total 400 300 Balance 600.0 -195.5 Intake: Intake, IV Amount 100.0 104.5 Right Antecubital 24 19 Right Wrist 76.0 85.5 Oral 900 Output: Urine 400 300 Urine, Voided 400 300 Other: # Bowel Movements 0 0 - Physical Exam Head: Positive for: Atraumatic, Normocephalic Pupils: Positive for: PERRL Extroacular Muscles: Positive for: EOMI Conjunctiva: Positive for: Normal Mouth: Positive for: Moist Mucous Membranes Nose (External): Positive for: Atraumatic Neck: Positive for: Normal Range of Motion. Negative for: JVD Respiratory/Chest: Positive for: Clear to Auscultation, Good Air Exchange. Negative for: Respiratory Distress, Accessory Muscle Use, Wheezes, Rales, Rhonchi Cardiovascular: Positive for: Regular Rate and Rhythm, Normal S1, S2. Negative for: Murmurs Abdomen: Positive for: Tenderness (mild diffuse to palpation), Normal Bowel Sounds. Negative for: Peritoneal Signs Upper Extremity: Positive for: Normal Inspection. Negative for: Cyanosis, Edema Lower Extremity: Positive for: Normal Inspection. Negative for: Edema Neurological: Positive for: CN II-XII Intact, Speech Normal Skin: Positive for: Warm, Dry, Normal Color. Negative for: Rashes Psychiatric: Positive for: Alert, Oriented x 3, Normal Insight, Normal Concentration - Medications Active Medications: Active Medications Generic Name Dose Route Start Last Admin Trade Name Freq PRN Reason Stop Dose Admin Acetaminophen 650 mg 08/21/16 17:12 08/21/16 17:46 Tylenol 325mg Tab PO 650 mg Q6 PRN Administration Headache Aspirin 81 mg 08/22/16 10:00 Aspirin Chewable PO DAILY STARR Carvedilol 3.125 mg 08/21/16 19:00 08/21/16 22:02 Coreg PO 3.125 mg BID STARR Administration Clonazepam 0.5 mg 08/20/16 23:30 08/21/16 23:42 Klonopin PO 0.5 mg Q8H STARR Administration Famotidine 20 mg 08/21/16 18:00 08/21/16 17:48 Pepcid PO 20 mg BID STARR Administration Heparin Sodium/Sodium Chloride 25,000 units in 250 mls @ 8.981 mls/hr 10:27 08/21/16 10:55 Heparin 40425 Units/250ml 1/2 Normal Saline IV 12 units/kg/hr .Q24H PRN 8.981 mls/hr PROTOCOL Administration Protocol 12 UNITS/KG/HR Nitroglycerin/Dextrose 50 mg in 250 mls @ 7.5 mls/hr 08/21/16 12:00 08/21/16 12:00 Nitroglycerin 50 Mg/250 Ml D5w IV 25 mcg/min .Q24H STARR 7.5 mls/hr Protocol Administration 25 MCG/MIN Nitroglycerin 0.4 mg 08/20/16 20:53 08/21/16 11:40 Nitrostat Sl Tab SL 0.4 mg Q5M PRN Administration Pain, Mild (1-3) Quetiapine Fumarate 600 mg 08/21/16 22:00 08/21/16 22:03 Seroquel Xr PO 600 mg HS STARR Administration Rosuvastatin Calcium 20 mg 08/21/16 22:00 08/21/16 22:02 Crestor PO 20 mg HS STARR Administration Ticagrelor 90 mg 08/22/16 10:00 Brilinta PO BID STARR Trazodone HCl 100 mg 08/21/16 10:00 08/21/16 22:03 Desyrel PO 100 mg HS STARR Administration Venlafaxine HCl 75 mg 08/21/16 10:00 08/21/16 11:00 Effexor Xr PO Not Given DAILY STARR - Patient Studies Lab Studies: Lab Studies 08/22/16 08/22/16 08/22/16 Range/Units 06:22 06:22 04:00 WBC 6.1 (4.8-10.8) K/uL RBC 3.63 L (3.80-5.20) Mil/uL Hgb 12.1 (11.0-16.0) g/dL Hct 36.1 (34.0-47.0) % MCV 99.5 H (81.0-99.0) fL MCH 33.3 H (27.0-31.0) pg MCHC 33.4 (33.0-37.0) g/dL RDW 13.5 (11.5-14.5) % Plt Count 245 (130-400) K/uL MPV 8.4 (7.2-11.7) fL Neut % (Auto) 46.1 L (50.0-75.0) % Lymph % (Auto) 43.7 H (20.0-40.0) % Petroleum % (Auto) 8.2 (0.0-10.0) % Eos % (Auto) 1.4 (0.0-4.0) % Baso % (Auto) 0.6 (0.0-2.0) % Neut # 2.8 (1.8-7.0) K/uL Lymph # 2.7 (1.0-4.3) K/uL Petroleum # 0.5 (0.0-0.8) K/uL Eos # 0.1 (0.0-0.7) K/uL Baso # 0.0 (0.0-0.2) K/uL PT 11.4 (9.7-12.2) SECONDS INR 1.0 APTT 129 H* D (21-34) SECONDS Sodium 137 (132-148) mmol/L Potassium 3.9 (3.6-5.2) mmol/L Chloride 103 (98-107) mmol/L Carbon Dioxide 27 (22-30) mmol/L Anion Gap 11 (10-20) BUN 14 (7-17) mg/dL Creatinine 0.5 L (0.7-1.2) MG/DL Est GFR ( Amer) > 60 Est GFR (Non-Af Amer) > 60 Random Glucose 90 (65-105) mg/dL Calcium 8.6 (8.6-10.4) mg/dl Phosphorus 3.1 (2.5-4.5) mg/dL Magnesium 2.2 (1.6-2.3) mg/dL Total Bilirubin 0.7 (0.2-1.3) mg/dL AST 52 H (14-36) U/L ALT 20 (9-52) U/L Alkaline Phosphatase 77 (38-126) U/L Total Creatine Kinase (30-135) U/L CK-MB (Mass) (0.0-3.38) ng/mL Troponin I (0.00-0.120) ng/mL Troponin I, Quant (0.00-0.120) ng/mL Total Protein 6.4 (6.3-8.3) g/dL Albumin 3.6 (3.5-5.0) g/dL Globulin 2.8 (2.2-3.9) gm/dL Albumin/Globulin Ratio 1.3 (1.0-2.1) TSH 3rd Generation (0.46-4.68) mIU/L 08/21/16 08/21/16 08/21/16 Range/Units 18:57 18:57 12:34 WBC (4.8-10.8) K/uL RBC (3.80-5.20) Mil/uL Hgb (11.0-16.0) g/dL Hct (34.0-47.0) % MCV (81.0-99.0) fL MCH (27.0-31.0) pg MCHC (33.0-37.0) g/dL RDW (11.5-14.5) % Plt Count (130-400) K/uL MPV (7.2-11.7) fL Neut % (Auto) (50.0-75.0) % Lymph % (Auto) (20.0-40.0) % Petroleum % (Auto) (0.0-10.0) % Eos % (Auto) (0.0-4.0) % Baso % (Auto) (0.0-2.0) % Neut # (1.8-7.0) K/uL Lymph # (1.0-4.3) K/uL Petroleum # (0.0-0.8) K/uL Eos # (0.0-0.7) K/uL Baso # (0.0-0.2) K/uL PT (9.7-12.2) SECONDS INR APTT 73 H D (21-34) SECONDS Sodium 137 (132-148) mmol/L Potassium 3.6 (3.6-5.2) mmol/L Chloride 101 (98-107) mmol/L Carbon Dioxide 29 (22-30) mmol/L Anion Gap 11 (10-20) BUN 16 (7-17) mg/dL Creatinine 0.5 L (0.7-1.2) MG/DL Est GFR ( Amer) > 60 Est GFR (Non-Af Amer) > 60 Random Glucose 89 (65-105) mg/dL Calcium 8.8 (8.6-10.4) mg/dl Phosphorus 3.6 (2.5-4.5) mg/dL Magnesium 2.0 (1.6-2.3) mg/dL Total Bilirubin 0.4 (0.2-1.3) mg/dL AST 63 H D (14-36) U/L ALT 29 (9-52) U/L Alkaline Phosphatase 79 (38-126) U/L Total Creatine Kinase 272 H (30-135) U/L CK-MB (Mass) 14.1 H (0.0-3.38) ng/mL Troponin I 5.0800 H* (0.00-0.120) ng/mL Troponin I, Quant 3.5300 H* (0.00-0.120) ng/mL Total Protein 6.7 (6.3-8.3) g/dL Albumin 3.7 (3.5-5.0) g/dL Globulin 3.1 (2.2-3.9) gm/dL Albumin/Globulin Ratio 1.2 (1.0-2.1) TSH 3rd Generation 0.98 (0.46-4.68) mIU/L 08/21/16 Range/Units 12:34 WBC 7.6 (4.8-10.8) K/uL RBC 3.67 L (3.80-5.20) Mil/uL Hgb 12.1 (11.0-16.0) g/dL Hct 36.4 (34.0-47.0) % MCV 99.2 H (81.0-99.0) fL MCH 33.1 H (27.0-31.0) pg MCHC 33.3 (33.0-37.0) g/dL RDW 13.2 (11.5-14.5) % Plt Count 253 (130-400) K/uL MPV 8.2 (7.2-11.7) fL Neut % (Auto) (50.0-75.0) % Lymph % (Auto) (20.0-40.0) % Petroleum % (Auto) (0.0-10.0) % Eos % (Auto) (0.0-4.0) % Baso % (Auto) (0.0-2.0) % Neut # (1.8-7.0) K/uL Lymph # (1.0-4.3) K/uL Petroleum # (0.0-0.8) K/uL Eos # (0.0-0.7) K/uL Baso # (0.0-0.2) K/uL PT (9.7-12.2) SECONDS INR APTT (21-34) SECONDS Sodium (132-148) mmol/L Potassium (3.6-5.2) mmol/L Chloride (98-107) mmol/L Carbon Dioxide (22-30) mmol/L Anion Gap (10-20) BUN (7-17) mg/dL Creatinine (0.7-1.2) MG/DL Est GFR ( Amer) Est GFR (Non-Af Amer) Random Glucose (65-105) mg/dL Calcium (8.6-10.4) mg/dl Phosphorus (2.5-4.5) mg/dL Magnesium (1.6-2.3) mg/dL Total Bilirubin (0.2-1.3) mg/dL AST (14-36) U/L ALT (9-52) U/L Alkaline Phosphatase (38-126) U/L Total Creatine Kinase (30-135) U/L CK-MB (Mass) (0.0-3.38) ng/mL Troponin I (0.00-0.120) ng/mL Troponin I, Quant (0.00-0.120) ng/mL Total Protein (6.3-8.3) g/dL Albumin (3.5-5.0) g/dL Globulin (2.2-3.9) gm/dL Albumin/Globulin Ratio (1.0-2.1) TSH 3rd Generation (0.46-4.68) mIU/L Laboratory Results - last 24 hr 08/21/16 08/21/16 08/21/16 12:34 12:34 18:57 WBC 7.6 RBC 3.67 L Hgb 12.1 Hct 36.4 MCV 99.2 H MCH 33.1 H MCHC 33.3 RDW 13.2 Plt Count 253 MPV 8.2 Neut % (Auto) Lymph % (Auto) Petroleum % (Auto) Eos % (Auto) Baso % (Auto) Neut # Lymph # Petroleum # Eos # Baso # PT INR APTT 73 H D Sodium 137 Potassium 3.6 Chloride 101 Carbon Dioxide 29 Anion Gap 11 BUN 16 Creatinine 0.5 L Est GFR ( Amer) > 60 Est GFR (Non-Af Amer) > 60 Random Glucose 89 Calcium 8.8 Phosphorus 3.6 Magnesium 2.0 Total Bilirubin 0.4 AST 63 H D ALT 29 Alkaline Phosphatase 79 Total Creatine Kinase CK-MB (Mass) Troponin I 5.0800 H* Troponin I, Quant Total Protein 6.7 Albumin 3.7 Globulin 3.1 Albumin/Globulin Ratio 1.2 TSH 3rd Generation 0.98 08/21/16 08/22/16 08/22/16 18:57 04:00 06:22 WBC 6.1 RBC 3.63 L Hgb 12.1 Hct 36.1 MCV 99.5 H MCH 33.3 H MCHC 33.4 RDW 13.5 Plt Count 245 MPV 8.4 Neut % (Auto) 46.1 L Lymph % (Auto) 43.7 H Petroleum % (Auto) 8.2 Eos % (Auto) 1.4 Baso % (Auto) 0.6 Neut # 2.8 Lymph # 2.7 Petroleum # 0.5 Eos # 0.1 Baso # 0.0 PT 11.4 INR 1.0 APTT 129 H* D Sodium Potassium Chloride Carbon Dioxide Anion Gap BUN Creatinine Est GFR ( Amer) Est GFR (Non-Af Amer) Random Glucose Calcium Phosphorus Magnesium Total Bilirubin AST ALT Alkaline Phosphatase Total Creatine Kinase 272 H CK-MB (Mass) 14.1 H Troponin I Troponin I, Quant 3.5300 H* Total Protein Albumin Globulin Albumin/Globulin Ratio TSH 3rd Generation 08/22/16 06:22 WBC RBC Hgb Hct MCV MCH MCHC RDW Plt Count MPV Neut % (Auto) Lymph % (Auto) Petroleum % (Auto) Eos % (Auto) Baso % (Auto) Neut # Lymph # Petroleum # Eos # Baso # PT INR APTT Sodium 137 Potassium 3.9 Chloride 103 Carbon Dioxide 27 Anion Gap 11 BUN 14 Creatinine 0.5 L Est GFR ( Amer) > 60 Est GFR (Non-Af Amer) > 60 Random Glucose 90 Calcium 8.6 Phosphorus 3.1 Magnesium 2.2 Total Bilirubin 0.7 AST 52 H ALT 20 Alkaline Phosphatase 77 Total Creatine Kinase CK-MB (Mass) Troponin I Troponin I, Quant Total Protein 6.4 Albumin 3.6 Globulin 2.8 Albumin/Globulin Ratio 1.3 TSH 3rd Generation EKG/Cardiology Studies: Cardiology / EKG Studies 08/21/16 12:02 EKG [ELECTROCARDIOGRAM] Stat Comment: Mode Of Transportation: PORTABLE Reason For Exam: acs Review of Systems - Constitutional Constitutional: absent: Fever, Chills - EENT Eyes: As Per HPI. absent: Blurred Vision Ears: As Per HPI. absent: Tinnitus, Dizziness Nose/Mouth/Throat: As Per HPI. absent: Sore Throat - Cardiovascular Cardiovascular: As Per HPI. absent: Chest Pain, Dyspnea, Edema, Palpitations - Respiratory Respiratory: As Per HPI. absent: Cough, Dyspnea, Chest Congestion - Gastrointestinal Gastrointestinal: As Per HPI. absent: Abdominal Pain, Constipation, Diarrhea, Nausea, Vomiting - Genitourinary Genitourinary: As Per HPI. absent: Dysuria - Musculoskeletal Musculoskeletal: As Par HPI. absent: Numbness, Tingling - Neurological Neurological: As Per HPI, Headaches. absent: Tingling - Endocrine Endocrine: As Per HPI. absent: Palpitations, Polydipsia, Polyphagia, Polyuria - Hematologic/Lymphatic Hematologic: As Per HPI. absent: Easy Bleeding, Easy Bruising Assessment/Plan - Assessment and Plan (Free Text) Assessment: 66F PMHx of anxiety, bipolar, MDD, mitrala valve prolapse presented with chest pain that started the night before. Transferred to ICU for elevated troponin. Plan: Neuro -AO x 3 -hx of headaches -Tylenol 650mg po q6 prn h/a Cardiovascular -NSTEMI -Troponin 9.88--> 5.080 -EKG: sinus rhythm with inferior and lateral t-wave inversions suggestive of ischemia -Echo: EF 45-50%, infero-posterior hypokinesia, mild mr, Grade 1 Diastolic dysfunction -[place] [facility] [place] and [place] PCI with Dr. Katz and will return after procedure. -Elevated Lipid panel T Cholesterol: 252 LDL: 163 HDL: 63 -Thyroid studies WNL -T4: 0.58 -TSH: 0.53 -[place] for [place] [facility] [place] cath and PCI -ASA 81mg po dialy -Coreg 3.125mg po bid -Heparin gtt on hold- will restart/continue to hold followint PTT at 8:30am -Brilinta 90mg po bid -Crestor 20mg po hs -Dr. Katz cardio following Pulm -no acute issues -breathing spontaneously on NC 2L GI -no acute issues Heme -no acute issues -PT/INR ordered for AM Renal -no acute issues Endo -no acute issues -HgbA1c 5.8 Psych -hx of MDD, bipolar, anxiety -Effexor xr 75mg po daily -Trazodone 100mg po hs -Seroquel 600mg po hs -Clonazepam 0.5mg po q8 GI ppx: Pepcid 20mg po bid VTE ppx: Heparin gtt; SCD c/i until patient venous dopplers done Code Status: full code Dispo: [place] to be [place] [facility] [place] and possible PCI and will return after procedure. Case discussed with Dr. Nilay Morales PGY2 <Ashok Pemberton - Last Filed: 08/22/16 17:47> CCU Objective - Vital Signs / Intake & Output Intake and Output (Last 8hrs): Intake & Output 08/22/16 08/22/16 08/22/16 06:59 14:59 22:59 Intake Total 104.5 268.4 Output Total 300 600 Balance -195.5 -331.6 Intake: IV 0 Intake, IV Amount 104.5 28.4 Right Antecubital 19 Right Wrist 85.5 28.4 Oral 240 Output: Urine 300 600 Urine, Voided 300 600 Other: # Bowel Movements 0 - Medications Active Medications: Active Medications Generic Name Dose Route Start Last Admin Trade Name Freq PRN Reason Stop Dose Admin Acetaminophen 650 mg 08/21/16 17:12 08/21/16 17:46 Tylenol 325mg Tab PO 650 mg Q6 PRN Administration Headache Aspirin 81 mg 08/22/16 10:00 08/22/16 09:13 Aspirin Chewable PO 81 mg DAILY STARR Administration Carvedilol 3.125 mg 08/21/16 19:00 08/22/16 10:49 Coreg PO Not Given BID STARR Clonazepam 0.5 mg 08/20/16 23:30 08/22/16 08:29 Klonopin PO 0.5 mg Q8H STARR Administration Famotidine 20 mg 08/21/16 18:00 08/22/16 09:13 Pepcid PO 20 mg BID STARR Administration Heparin Sodium/Sodium Chloride 25,000 units in 250 mls @ 8.981 mls/hr 10:27 08/22/16 09:00 Heparin 83723 Units/250ml 1/2 Normal Saline IV 9 units/kg/hr .Q24H PRN 6.736 mls/hr PROTOCOL Titration Protocol 12 UNITS/KG/HR Nitroglycerin/Dextrose 50 mg in 250 mls @ 7.5 mls/hr 08/21/16 12:00 08/21/16 12:00 Nitroglycerin 50 Mg/250 Ml D5w IV 25 mcg/min .Q24H STARR 7.5 mls/hr Protocol Administration 25 MCG/MIN Nitroglycerin 0.4 mg 08/20/16 20:53 08/21/16 11:40 Nitrostat Sl Tab SL 0.4 mg Q5M PRN Administration Pain, Mild (1-3) Quetiapine Fumarate 600 mg 08/21/16 22:00 08/21/16 22:03 Seroquel Xr PO 600 mg HS STARR Administration Rosuvastatin Calcium 20 mg 08/21/16 22:00 08/21/16 22:02 Crestor PO 20 mg HS STARR Administration Ticagrelor 90 mg 08/22/16 10:00 08/22/16 09:15 Brilinta PO 90 mg BID STARR Administration Trazodone HCl 100 mg 08/21/16 10:00 08/21/16 22:03 Desyrel PO 100 mg HS STARR Administration Venlafaxine HCl 75 mg 08/21/16 10:00 08/22/16 09:25 Effexor Xr PO 75 mg DAILY STARR Administration - Patient Studies Lab Studies: Microbiology Studies 08/21/16 12:24 MRSA Culture (Admit) - Final Nose MRSA NOT DETECTED Lab Studies 08/22/16 08/22/16 08/22/16 Range/Units 12:38 06:22 06:22 WBC 6.1 (4.8-10.8) K/uL RBC 3.63 L (3.80-5.20) Mil/uL Hgb 12.1 (11.0-16.0) g/dL Hct 36.1 (34.0-47.0) % MCV 99.5 H (81.0-99.0) fL MCH 33.3 H (27.0-31.0) pg MCHC 33.4 (33.0-37.0) g/dL RDW 13.5 (11.5-14.5) % Plt Count 245 (130-400) K/uL MPV 8.4 (7.2-11.7) fL Neut % (Auto) 46.1 L (50.0-75.0) % Lymph % (Auto) 43.7 H (20.0-40.0) % Petroleum % (Auto) 8.2 (0.0-10.0) % Eos % (Auto) 1.4 (0.0-4.0) % Baso % (Auto) 0.6 (0.0-2.0) % Neut # 2.8 (1.8-7.0) K/uL Lymph # 2.7 (1.0-4.3) K/uL Petroleum # 0.5 (0.0-0.8) K/uL Eos # 0.1 (0.0-0.7) K/uL Baso # 0.0 (0.0-0.2) K/uL PT (9.7-12.2) SECONDS INR APTT 57 H D (21-34) SECONDS Sodium 137 (132-148) mmol/L Potassium 3.9 (3.6-5.2) mmol/L Chloride 103 (98-107) mmol/L Carbon Dioxide 27 (22-30) mmol/L Anion Gap 11 (10-20) BUN 14 (7-17) mg/dL Creatinine 0.5 L (0.7-1.2) MG/DL Est GFR ( Amer) > 60 Est GFR (Non-Af Amer) > 60 Random Glucose 90 (65-105) mg/dL Calcium 8.6 (8.6-10.4) mg/dl Phosphorus 3.1 (2.5-4.5) mg/dL Magnesium 2.2 (1.6-2.3) mg/dL Total Bilirubin 0.7 (0.2-1.3) mg/dL AST 52 H (14-36) U/L ALT 20 (9-52) U/L Alkaline Phosphatase 77 (38-126) U/L Total Creatine Kinase (30-135) U/L CK-MB (Mass) (0.0-3.38) ng/mL Troponin I, Quant (0.00-0.120) ng/mL Total Protein 6.4 (6.3-8.3) g/dL Albumin 3.6 (3.5-5.0) g/dL Globulin 2.8 (2.2-3.9) gm/dL Albumin/Globulin Ratio 1.3 (1.0-2.1) 08/22/16 08/21/16 08/21/16 Range/Units 04:00 18:57 18:57 WBC (4.8-10.8) K/uL RBC (3.80-5.20) Mil/uL Hgb (11.0-16.0) g/dL Hct (34.0-47.0) % MCV (81.0-99.0) fL MCH (27.0-31.0) pg MCHC (33.0-37.0) g/dL RDW (11.5-14.5) % Plt Count (130-400) K/uL MPV (7.2-11.7) fL Neut % (Auto) (50.0-75.0) % Lymph % (Auto) (20.0-40.0) % Petroleum % (Auto) (0.0-10.0) % Eos % (Auto) (0.0-4.0) % Baso % (Auto) (0.0-2.0) % Neut # (1.8-7.0) K/uL Lymph # (1.0-4.3) K/uL Petroleum # (0.0-0.8) K/uL Eos # (0.0-0.7) K/uL Baso # (0.0-0.2) K/uL PT 11.4 (9.7-12.2) SECONDS INR 1.0 APTT 129 H* D 73 H D (21-34) SECONDS Sodium (132-148) mmol/L Potassium (3.6-5.2) mmol/L Chloride (98-107) mmol/L Carbon Dioxide (22-30) mmol/L Anion Gap (10-20) BUN (7-17) mg/dL Creatinine (0.7-1.2) MG/DL Est GFR ( Amer) Est GFR (Non-Af Amer) Random Glucose (65-105) mg/dL Calcium (8.6-10.4) mg/dl Phosphorus (2.5-4.5) mg/dL Magnesium (1.6-2.3) mg/dL Total Bilirubin (0.2-1.3) mg/dL AST (14-36) U/L ALT (9-52) U/L Alkaline Phosphatase (38-126) U/L Total Creatine Kinase 272 H (30-135) U/L CK-MB (Mass) 14.1 H (0.0-3.38) ng/mL Troponin I, Quant 3.5300 H* (0.00-0.120) ng/mL Total Protein (6.3-8.3) g/dL Albumin (3.5-5.0) g/dL Globulin (2.2-3.9) gm/dL Albumin/Globulin Ratio (1.0-2.1) Laboratory Results - last 24 hr 08/21/16 08/21/16 08/22/16 18:57 18:57 04:00 WBC RBC Hgb Hct MCV MCH MCHC RDW Plt Count MPV Neut % (Auto) Lymph % (Auto) Petroleum % (Auto) Eos % (Auto) Baso % (Auto) Neut # Lymph # Petroleum # Eos # Baso # PT 11.4 INR 1.0 APTT 73 H D 129 H* D Sodium Potassium Chloride Carbon Dioxide Anion Gap BUN Creatinine Est GFR ( Amer) Est GFR (Non-Af Amer) Random Glucose Calcium Phosphorus Magnesium Total Bilirubin AST ALT Alkaline Phosphatase Total Creatine Kinase 272 H CK-MB (Mass) 14.1 H Troponin I, Quant 3.5300 H* Total Protein Albumin Globulin Albumin/Globulin Ratio 08/22/16 08/22/16 08/22/16 06:22 06:22 12:38 WBC 6.1 RBC 3.63 L Hgb 12.1 Hct 36.1 MCV 99.5 H MCH 33.3 H MCHC 33.4 RDW 13.5 Plt Count 245 MPV 8.4 Neut % (Auto) 46.1 L Lymph % (Auto) 43.7 H Petroleum % (Auto) 8.2 Eos % (Auto) 1.4 Baso % (Auto) 0.6 Neut # 2.8 Lymph # 2.7 Petroleum # 0.5 Eos # 0.1 Baso # 0.0 PT INR APTT 57 H D Sodium 137 Potassium 3.9 Chloride 103 Carbon Dioxide 27 Anion Gap 11 BUN 14 Creatinine 0.5 L Est GFR ( Amer) > 60 Est GFR (Non-Af Amer) > 60 Random Glucose 90 Calcium 8.6 Phosphorus 3.1 Magnesium 2.2 Total Bilirubin 0.7 AST 52 H ALT 20 Alkaline Phosphatase 77 Total Creatine Kinase CK-MB (Mass) Troponin I, Quant Total Protein 6.4 Albumin 3.6 Globulin 2.8 Albumin/Globulin Ratio 1.3 Attending/Attestation - Attestation I have personally seen and examined this patient.: Yes I have fully participated in the care of the patient.: Yes I have reviewed all pertinent clinical information: Yes Notes (Text): 08/22/16 17:46 patient seen and examined in the intensive care unit. Case discussed with house staff in the morning rounds. Patient scheduled forcardiac catheter and PCI at [facility] Continuiue patient on anticoagulation
[2016-08-22] MEDS: Venlafaxine 75 mg ER Cap PO SCH (09:25)
--- NOTE | 2016-08-22 11:30 | CP.PCM.HP ---
History of Present Illness - History of Present Illness History of Present Illness: pt came to er forchest pain whilewassiting eating got retrsternal chest pain radiating to l arm Present on Admission - Present on Admission Any Indicators Present on Admission: No Review of Systems - Review of Systems Systems not reviewed;Unavailable: Acuity of Condition - Constitutional Constitutional: Anorexia - EENT Eyes: As Per HPI Ears: As Per HPI Nose/Mouth/Throat: As Per HPI - Breasts Breasts: As Per HPI - Cardiovascular Cardiovascular: Chest Pain at Rest - Respiratory Respiratory: Dyspnea - Gastrointestinal Gastrointestinal: As Per HPI - Genitourinary Genitourinary: As Per HPI - Reproductive: Female Reproductive:Female: As Per HPI - Musculoskeletal Musculoskeletal: As Per HPI - Integumentary Integumentary: As Per HPI - Neurological Neurological: As Per HPI - Psychiatric Psychiatric: As Per HPI - Endocrine Endocrine: As Per HPI - Hematologic/Lymphatic Hematologic: As Per HPI Past Patient History - Past Medical History & Family History Past Medical History?: Yes - Past Social History Smoking Status: Former Smoker - CARDIAC Hx Mitral Valve Prolapse: Yes - PULMONARY Hx Respiratory Disorders: No - NEUROLOGICAL Hx Neurological Disorder: No - HEENT Hx HEENT Problems: No - RENAL Hx Chronic Kidney Disease: No - ENDOCRINE/METABOLIC Hx Endocrine Disorders: No - HEMATOLOGICAL/ONCOLOGICAL Hx Blood Disorders: No - INTEGUMENTARY Hx Dermatological Problems: No - MUSCULOSKELETAL/RHEUMATOLOGICAL Hx Falls: Yes - GASTROINTESTINAL Hx Clostridium Difficile: Yes Hx Gall Bladder Disease: Yes - GENITOURINARY/GYNECOLOGICAL Hx Genitourinary Disorders: No - PSYCHIATRIC Hx Substance Use: No - SURGICAL HISTORY Hx Cholecystectomy: Yes Hx Musculoskeletal Surgery: Yes (SPINE Sx.2007 and 2009) Other/Comment: Partial Colectomy.03-06-14,Reversal Colon 06/2014,Rt. Hernia Sx 2010,Rt. Rotator Cuff Sx .Left labrial Sx (Left Arm )2010, - ANESTHESIA Hx Anesthesia: Yes Hx Anesthesia Reactions: No Hx Malignant Hyperthermia: No Has any member of the family had a problem w/ anesthesia?: No Meds Allergies/Adverse Reactions: Allergies Allergy/AdvReac Type Severity Reaction Status Date / Time No Known Allergies Allergy Unverified 08/20/16 20:42 Physical Exam - Constitutional Appears: Non-toxic - Head Exam Head Exam: NORMAL INSPECTION - Eye Exam Eye Exam: Normal appearance Pupil Exam: NORMAL ACCOMODATION - ENT Exam ENT Exam: Mucous Membranes Moist - Neck Exam Neck exam: Positive for: Normal Inspection - Respiratory Exam Respiratory Exam: NORMAL BREATHING PATTERN - Cardiovascular Exam Cardiovascular Exam: REGULAR RHYTHM - GI/Abdominal Exam GI & Abdominal Exam: Normal Bowel Sounds - Rectal Exam Rectal Exam: Deferred - Back Exam Back exam: NORMAL INSPECTION - Neurological Exam Neurological exam: Alert, Oriented x3 - Psychiatric Exam Psychiatric exam: Normal Affect - Skin Skin Exam: Dry Results - Vital Signs Recent Vital Signs: Last Vital Signs Temp 98 F 08/22/16 08:00 Pulse 67 08/22/16 08:03 Resp 9 L 08/22/16 08:03 BP 102/49 L 08/22/16 08:03 Pulse Ox 98 08/22/16 08:03 - Labs Result Diagrams: 08/22/16 06:22 08/22/16 06:22 Labs: Laboratory Results - last 24 hr 08/21/16 08/21/16 08/21/16 12:34 12:34 18:57 WBC 7.6 RBC 3.67 L Hgb 12.1 Hct 36.4 MCV 99.2 H MCH 33.1 H MCHC 33.3 RDW 13.2 Plt Count 253 MPV 8.2 Neut % (Auto) Lymph % (Auto) [place] % (Auto) Eos % (Auto) Baso % (Auto) Neut # Lymph # [place] # Eos # Baso # PT INR APTT 73 H D Sodium 137 Potassium 3.6 Chloride 101 Carbon Dioxide 29 Anion Gap 11 BUN 16 Creatinine 0.5 L Est GFR ( Amer) > 60 Est GFR (Non-Af Amer) > 60 Random Glucose 89 Calcium 8.8 Phosphorus 3.6 Magnesium 2.0 Total Bilirubin 0.4 AST 63 H D ALT 29 Alkaline Phosphatase 79 Total Creatine Kinase CK-MB (Mass) Troponin I 5.0800 H* Troponin I, Quant Total Protein 6.7 Albumin 3.7 Globulin 3.1 Albumin/Globulin Ratio 1.2 TSH 3rd Generation 0.98 08/21/16 08/22/16 08/22/16 18:57 04:00 06:22 WBC 6.1 RBC 3.63 L Hgb 12.1 Hct 36.1 MCV 99.5 H MCH 33.3 H MCHC 33.4 RDW 13.5 Plt Count 245 MPV 8.4 Neut % (Auto) 46.1 L Lymph % (Auto) 43.7 H [place] % (Auto) 8.2 Eos % (Auto) 1.4 Baso % (Auto) 0.6 Neut # 2.8 Lymph # 2.7 [place] # 0.5 Eos # 0.1 Baso # 0.0 PT 11.4 INR 1.0 APTT 129 H* D Sodium Potassium Chloride Carbon Dioxide Anion Gap BUN Creatinine Est GFR ( Amer) Est GFR (Non-Af Amer) Random Glucose Calcium Phosphorus Magnesium Total Bilirubin AST ALT Alkaline Phosphatase Total Creatine Kinase 272 H CK-MB (Mass) 14.1 H Troponin I Troponin I, Quant 3.5300 H* Total Protein Albumin Globulin Albumin/Globulin Ratio TSH 3rd Generation 08/22/16 06:22 WBC RBC Hgb Hct MCV MCH MCHC RDW Plt Count MPV Neut % (Auto) Lymph % (Auto) [place] % (Auto) Eos % (Auto) Baso % (Auto) Neut # Lymph # [place] # Eos # Baso # PT INR APTT Sodium 137 Potassium 3.9 Chloride 103 Carbon Dioxide 27 Anion Gap 11 BUN 14 Creatinine 0.5 L Est GFR ( Amer) > 60 Est GFR (Non-Af Amer) > 60 Random Glucose 90 Calcium 8.6 Phosphorus 3.1 Magnesium 2.2 Total Bilirubin 0.7 AST 52 H ALT 20 Alkaline Phosphatase 77 Total Creatine Kinase CK-MB (Mass) Troponin I Troponin I, Quant Total Protein 6.4 Albumin 3.6 Globulin 2.8 Albumin/Globulin Ratio 1.3 TSH 3rd Generation Assessment & Plan - Assessment and Plan (Free Text) Assessment: ac chest pain possible cad [place] [facility] [place] - Date & Time Date: 08/22/16 Time: 11:33
--- NOTE | 2016-08-22 15:22 | VASCLAB ---
PROCEDURE: Lower Extremity Venous Duplex Exam. HISTORY: LE swelling, Chest pain, SOB, Suspected DVT PRIORS: None. TECHNIQUE: Bilateral common femoral, femoral, popliteal and posterior tibial, peroneal and great saphenous veins were evaluated. Flow was assessed with color Doppler, compressibility, assessment of phasic flow and augmentation response. Report prepared by Moises Lawrence, RVT FINDINGS: RIGHT: 1. Common Femoral Vein: 1.1. Compressibility - Fully compressible: Thrombus - None : Flow - Phasic: Augmentation -Normal: Reflux - None. 2. Femoral Vein: 2.1. Compressibility - Fully compressible: Thrombus - None : Flow - Phasic: Augmentation -Normal: Reflux - None. 3. Popliteal Vein: 3.1. Compressibility - Fully compressible: Thrombus - None : Flow - Phasic: Augmentation -Normal: Reflux - None. 4. Posterior Tibial Vein: 4.1. Compressibility - Fully compressible: Thrombus - None: Flow - Phasic: Augmentation -Normal: Reflux - None. 5. Peroneal Vein: 5.1. Compressibility - Fully compressible: Thrombus - None: Flow - Phasic: Augmentation -Normal: Reflux - None. 6. Great Saphenous Vein: 6.1. Compressibility - Fully compressible: Thrombus - None: Flow - Phasic: Augmentation - Normal: Reflux - None. LEFT: 1. Common Femoral Vein: 1.1. Compressibility - Fully compressible: Thrombus - None: Flow - Phasic: Augmentation -Normal: Reflux - None. 2. Femoral Vein: 2.1. Compressibility - Fully compressible: Thrombus - None: Flow - Phasic: Augmentation -Normal: Reflux - None. 3. Popliteal Vein: 3.1. Compressibility - Fully compressible: Thrombus - None : Flow - Phasic: Augmentation -Normal: Reflux - None. 4. Posterior Tibial Vein: 4.1. Compressibility - Fully compressible: Thrombus - None: Flow - Phasic: Augmentation -Normal: Reflux - None. 5. Peroneal Vein: 5.1. Compressibility - Fully compressible: Thrombus - None: Flow - Phasic: Augmentation -Normal: Reflux - None. 6. Great Saphenous Vein: 6.1. Compressibility - Fully compressible: Thrombus - None: Flow - Phasic: Augmentation - Normal: Reflux - None. OTHER FINDINGS: Right: None significant. Left: None significant. IMPRESSION: Right: No evidence of deep or superficial vein thrombosis of the right lower extremity. Normal valve function noted of the right side. Left: No evidence of deep or superficial vein thrombosis of the left lower extremity. Normal valve function noted of the left side.
[2016-08-22] MEDS ORDERED: Oxycodone/Acetaminophen 5/325 mg Tab PO STA (20:43)
[2016-08-22] MEDS: QUEtiapine 200 mg XR Tab PO SCH (22:03)
[2016-08-23] MEDS ORDERED: Oxycodone/Acetaminophen 5/325 mg Tab PO STA (06:43)
[2016-08-23 07:00] LABS: BASO % 0.3 % (0.0-2.0); EOS # 0.1 K/uL (0.0-0.7); HEMOGLOBIN 11.2 g/dL (11.0-16.0); LYMPH # 1.8 K/uL (1.0-4.3); LYMPH % 33.2 % (20.0-40.0); MEAN CELL VOLUME 99.9 fL (81.0-99.0); MEAN CORPUSCULAR HEMOGLOBIN 33.4 pg (27.0-31.0); MEAN CORPUSCULAR HGB CONC 33.4 g/dL (33.0-37.0); MEAN PLATELET VOLUME 8.6 fL (7.2-11.7); MONO # 0.5 K/uL (0.0-0.8); MONO % 9.5 % (0.0-10.0); NEUT # 3.1 K/uL (1.8-7.0); RBC 3.34 Mil/uL (3.80-5.20); RED CELL DISTRIBUTION WIDTH 13.5 % (11.5-14.5); WHITE BLOOD COUNT 5.6 K/uL (4.8-10.8)
[2016-08-23 07:04] LABS: ALBUMIN 3.2 g/dL (3.5-5.0)
[2016-08-23 07:06] LABS: AST/SGOT 120 U/L (14-36); GFR AFRICAN-AMERICAN > 60; GFR NON-AFRICAN AMERICAN > 60
[2016-08-23 07:07] LABS: ALT/SGPT 88 U/L (9-52); BLOOD UREA NITROGEN 15 mg/dL (7-17)
[2016-08-23 07:08] LABS: CALCIUM 8.1 mg/dl (8.6-10.4); MAGNESIUM 2.1 mg/dL (1.6-2.3)
[2016-08-23 07:15] LABS: ALB/GLOB RATIO 1.2 (1.0-2.1)
--- NOTE | 2016-08-23 08:24 | CP.CCUPN ---
CCU Subjective - Physician Review Events Since Last Encounter (Free Text): 08/23/16 08:21 Patient admitted with a non-ST elevation [place]. Underwent cardiac catheterization, stent was done. Patient is currently doing well. No chest pain. Denies any palpitation. No nausea vomiting. Clinical stable at this time. 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 Patient is to be a smoker in the past. Currently room air oxygen saturation is 92%, after putting oxygen 94%. CCU Objective - Vital Signs / Intake & Output Vital Signs (Last 4 hours): Vital Signs Pulse Resp BP Pulse Ox 08/23/16 06:01 62 14 105/57 L 94 L 08/23/16 05:01 98/53 L 08/23/16 05:00 65 15 91 L Intake and Output (Last 8hrs): Intake & Output 08/22/16 08/23/16 08/23/16 22:59 06:59 14:59 Intake Total 100 480 Output Total 750 Balance 100 -270 Intake: Oral 100 480 Output: Urine 750 Urine, Voided 750 Other: # Bowel Movements 0 - Physical Exam Narrative Physical Exam (Free Text): 08/23/16 08:24 Vital signs reviewed No neck vein distention noted Chest good air entry bilaterally, no wheezing or rales noted CVS regular heart sound, no murmur noted Abdomen soft, nontender. Extremities no pedal edema [employer] CHEMIST alert awake oriented 3, no functional neurological deficit Head: Positive for: Atraumatic, Normocephalic Pupils: Positive for: PERRL Extroacular Muscles: Positive for: EOMI Conjunctiva: Positive for: Normal Mouth: Positive for: Moist Mucous Membranes Nose (External): Positive for: Atraumatic Neck: Positive for: Normal Range of Motion. Negative for: JVD Respiratory/Chest: Positive for: Clear to Auscultation, Good Air Exchange. Negative for: Respiratory Distress, Accessory Muscle Use, Wheezes, Rales, Rhonchi Cardiovascular: Positive for: Regular Rate and Rhythm, Normal S1, S2. Negative for: Murmurs Abdomen: Positive for: Tenderness (mild diffuse to palpation), Normal Bowel Sounds. Negative for: Peritoneal Signs Upper Extremity: Positive for: Normal Inspection. Negative for: Cyanosis, Edema Lower Extremity: Positive for: Normal Inspection. Negative for: Edema Neurological: Positive for: CN II-XII Intact, Speech Normal Skin: Positive for: Warm, Dry, Normal Color. Negative for: Rashes Psychiatric: Positive for: Alert, Oriented x 3, Normal Insight, Normal Concentration - Medications Active Medications: Active Medications Generic Name Dose Route Start Last Admin Trade Name Freq PRN Reason Stop Dose Admin Acetaminophen 650 mg 08/21/16 17:12 08/23/16 03:03 Tylenol 325mg Tab PO 650 mg Q6 PRN Administration Headache Aspirin 81 mg 08/22/16 10:00 08/22/16 09:13 Aspirin Chewable PO 81 mg DAILY [facility] Administration Carvedilol 3.125 mg 08/21/16 19:00 08/22/16 10:49 Coreg PO Not Given BID [facility] Clonazepam 0.5 mg 08/20/16 23:30 08/23/16 07:54 Klonopin PO 0.5 mg Q8H [facility] Administration Famotidine 20 mg 08/21/16 18:00 08/22/16 09:13 Pepcid PO 20 mg BID [facility] Administration Heparin Sodium/Sodium Chloride 25,000 units in 250 mls @ 8.981 mls/hr 10:27 08/22/16 09:00 Heparin 66825 Units/250ml 1/2 Normal Saline IV 9 units/kg/hr .Q24H PRN 6.736 mls/hr PROTOCOL Titration Protocol 12 UNITS/KG/HR Nitroglycerin/Dextrose 50 mg in 250 mls @ 7.5 mls/hr 08/21/16 12:00 08/21/16 12:00 Nitroglycerin 50 Mg/250 Ml D5w IV 25 mcg/min .Q24H [facility] 7.5 mls/hr Protocol Administration 25 MCG/MIN Nitroglycerin 0.4 mg 08/20/16 20:53 08/21/16 11:40 Nitrostat Sl Tab SL 0.4 mg Q5M PRN Administration Pain, Mild (1-3) Potassium Chloride 40 meq 08/24/16 08:19 Klor-Con 10 PO 08/24/16 08:20 ONCE ONE Quetiapine Fumarate 600 mg 08/21/16 22:00 08/22/16 22:03 Seroquel Xr PO 600 mg HS [facility] Administration Rosuvastatin Calcium 20 mg 08/21/16 22:00 08/22/16 22:03 Crestor PO 20 mg HS [facility] Administration Ticagrelor 90 mg 08/22/16 10:00 08/22/16 09:15 Brilinta PO 90 mg BID [facility] Administration Trazodone HCl 100 mg 08/21/16 10:00 08/22/16 22:03 Desyrel PO 100 mg HS [facility] Administration Venlafaxine HCl 75 mg 08/21/16 10:00 08/22/16 09:25 Effexor Xr PO 75 mg DAILY [facility] Administration - Patient Studies Lab Studies: Microbiology Studies 08/21/16 12:24 MRSA Culture (Admit) - Final Nose MRSA NOT DETECTED Lab Studies 08/23/16 08/23/16 08/22/16 Range/Units 06:35 06:35 12:38 WBC 5.6 (4.8-10.8) K/uL RBC 3.34 L (3.80-5.20) Mil/uL Hgb 11.2 (11.0-16.0) g/dL Hct 33.4 L (34.0-47.0) % MCV 99.9 H (81.0-99.0) fL MCH 33.4 H (27.0-31.0) pg MCHC 33.4 (33.0-37.0) g/dL RDW 13.5 (11.5-14.5) % Plt Count 209 (130-400) K/uL MPV 8.6 (7.2-11.7) fL Neut % (Auto) 56.0 (50.0-75.0) % Lymph % (Auto) 33.2 (20.0-40.0) % [place] % (Auto) 9.5 (0.0-10.0) % Eos % (Auto) 1.0 (0.0-4.0) % Baso % (Auto) 0.3 (0.0-2.0) % Neut # 3.1 (1.8-7.0) K/uL Lymph # 1.8 (1.0-4.3) K/uL [place] # 0.5 (0.0-0.8) K/uL Eos # 0.1 (0.0-0.7) K/uL Baso # 0.0 (0.0-0.2) K/uL APTT 57 H D (21-34) SECONDS Sodium 136 (132-148) mmol/L Potassium 3.8 (3.6-5.2) mmol/L Chloride 102 (98-107) mmol/L Carbon Dioxide 27 (22-30) mmol/L Anion Gap 11 (10-20) BUN 15 (7-17) mg/dL Creatinine 0.6 L (0.7-1.2) MG/DL Est GFR ( Amer) > 60 Est GFR (Non-Af Amer) > 60 Random Glucose 81 (65-105) mg/dL Calcium 8.1 L (8.6-10.4) mg/dl Phosphorus 3.1 (2.5-4.5) mg/dL Magnesium 2.1 (1.6-2.3) mg/dL Total Bilirubin 0.5 (0.2-1.3) mg/dL AST 120 H D (14-36) U/L ALT 88 H D (9-52) U/L Alkaline Phosphatase 86 (38-126) U/L Total Protein 5.8 L (6.3-8.3) g/dL Albumin 3.2 L (3.5-5.0) g/dL Globulin 2.6 (2.2-3.9) gm/dL Albumin/Globulin Ratio 1.2 (1.0-2.1) Laboratory Results - last 24 hr 08/22/16 08/23/16 08/23/16 12:38 06:35 06:35 WBC 5.6 RBC 3.34 L Hgb 11.2 Hct 33.4 L MCV 99.9 H MCH 33.4 H MCHC 33.4 RDW 13.5 Plt Count 209 MPV 8.6 Neut % (Auto) 56.0 Lymph % (Auto) 33.2 [place] % (Auto) 9.5 Eos % (Auto) 1.0 Baso % (Auto) 0.3 Neut # 3.1 Lymph # 1.8 [place] # 0.5 Eos # 0.1 Baso # 0.0 APTT 57 H D Sodium 136 Potassium 3.8 Chloride 102 Carbon Dioxide 27 Anion Gap 11 BUN 15 Creatinine 0.6 L Est GFR ( Amer) > 60 Est GFR (Non-Af Amer) > 60 Random Glucose 81 Calcium 8.1 L Phosphorus 3.1 Magnesium 2.1 Total Bilirubin 0.5 AST 120 H D ALT 88 H D Alkaline Phosphatase 86 Total Protein 5.8 L Albumin 3.2 L Globulin 2.6 Albumin/Globulin Ratio 1.2 Assessment/Plan - Assessment and Plan (Free Text) Assessment: 66-year-old female with a history of bipolar disease anxiety. Patient admitted with a non-ST elevation. Status post a stent. Currently and cardiac medications. Clinically stable. Out of bed to chair. Transferred to telemetry.
[2016-08-23] MEDS ORDERED: Potassium Chloride 20 mEq ER Tab PO ONE (09:00)
[2016-08-23] MEDS: Venlafaxine 75 mg ER Cap PO SCH (09:07)
[2016-08-23] MEDS: QUEtiapine 200 mg XR Tab PO SCH (22:19)
[2016-08-24] MEDS ORDERED: Potassium Chloride 20 mEq ER Tab PO ONE (08:45)
[2016-08-24] MEDS: Venlafaxine 75 mg ER Cap PO SCH (10:18)
--- NOTE | 2016-08-24 10:18 | CP.PCM.PN ---
Subjective - Date & Time of Evaluation Date of Evaluation: 08/24/16 Time of Evaluation: 10:15 - Subjective Subjective: pt apere in discomfort c/o of chest pain raditing to both arms Objective - Vital Signs/Intake and Output Vital Signs (last 24 hours): Temp Pulse Resp BP Pulse Ox 98 F 70 18 109/64 97 08/24/16 07:10 08/24/16 08:00 08/24/16 07:10 08/24/16 07:10 08/24/16 07:10 - Medications Medications: Current Medications Acetaminophen (Tylenol 325mg Tab) 650 mg PO Q6 PRN PRN Reason: Headache Last Admin: 08/24/16 06:58 Dose: 650 mg Aspirin (Aspirin Chewable) 81 mg PO DAILY [facility] Last Admin: 08/23/16 09:00 Dose: 81 mg Carvedilol (Coreg) 3.125 mg PO BID [facility] Last Admin: 08/23/16 09:00 Dose: 3.125 mg Clonazepam (Klonopin) 0.5 mg PO Q8H [facility] Last Admin: 08/24/16 08:35 Dose: Not Given Famotidine (Pepcid) 20 mg PO BID [facility] Last Admin: 08/23/16 09:01 Dose: 20 mg Nitroglycerin/Dextrose (Nitroglycerin 50 Mg/250 Ml D5w) 50 mg in 250 mls @ 7.5 mls/hr IV .Q24H [facility]; 25 MCG/MIN PRN Reason: Protocol Last Admin: 08/21/16 12:00 Dose: 25 mcg/min, 7.5 mls/hr Morphine Sulfate (Morphine) 2 mg IVP Q6H PRN PRN Reason: Pain, moderate (4-7) Nitroglycerin (Nitrostat Sl Tab) 0.4 mg SL Q5M PRN PRN Reason: Pain, Mild (1-3) Last Admin: 08/21/16 11:40 Dose: 0.4 mg Quetiapine Fumarate (Seroquel Xr) 600 mg PO [facility] Last Admin: 08/23/16 22:19 Dose: 600 mg Rosuvastatin Calcium (Crestor) 20 mg PO HS [facility] Last Admin: 08/23/16 22:26 Dose: 20 mg Ticagrelor (Brilinta) 90 mg PO BID [facility] Last Admin: 08/23/16 09:01 Dose: 90 mg Trazodone HCl (Desyrel) 100 mg PO [facility] Last Admin: 08/23/16 22:20 Dose: 100 mg Venlafaxine HCl (Effexor Xr) 75 mg PO DAILY [facility] Last Admin: 08/23/16 09:07 Dose: 75 mg - Labs Labs: 08/23/16 06:35 08/23/16 06:35 PT 11.4 SECONDS (9.7-12.2) 08/22/16 04:00 INR 1.0 08/22/16 04:00 APTT 57 SECONDS (21-34) H D 08/22/16 12:38 - Constitutional Appears: In Acute Distress - Head Exam Head Exam: NORMOCEPHALIC - Eye Exam Eye Exam: PERRL Pupil Exam: NORMAL ACCOMODATION - ENT Exam ENT Exam: Mucous Membranes Moist - Neck Exam Neck Exam: Full ROM - Respiratory Exam Respiratory Exam: Clear to Ausculation Bilateral - Cardiovascular Exam Cardiovascular Exam: REGULAR RHYTHM - GI/Abdominal Exam GI & Abdominal Exam: Normal Bowel Sounds - Extremities Exam Extremities Exam: Normal Inspection - Back Exam Back Exam: NORMAL INSPECTION - Neurological Exam Neurological Exam: Awake, Oriented x3 - Psychiatric Exam Psychiatric exam: Depressed - Skin Skin Exam: Normal Color Assessment and Plan - Assessment and Plan (Free Text) Assessment: ac recurent chest pain s/p angiplasty hypotension now depresed Plan: stat ekg lab revaluation by cardiology
[2016-08-24 10:45] LABS: ALBUMIN 3.7 g/dL (3.5-5.0)
[2016-08-24 10:48] LABS: ALB/GLOB RATIO 1.3 (1.0-2.1); BILIRUBIN,DIRECT 0.4 mg/dL (0.0-0.4)
[2016-08-24 11:05] LABS: CK-MB 1.03 ng/mL (0.0-3.38)
[2016-08-24] MEDS: Ranolazine 500 mg Extended Release Tablets PO SCH ×2 (11:49→17:10)
--- NOTE | 2016-08-24 12:27 | CP.PCM.PN ---
Subjective - Date & Time of Evaluation Date of Evaluation: 08/24/16 Time of Evaluation: 12:26 - Subjective Subjective: Recovering from NSTEMI PCI with MARVIN to a small distal LCX lesion Non-obstructive moderate disease in LAD Normal LVEF c/o of mild abdominal cramping reports loose stools Events reviewed Objective - Vital Signs/Intake and Output Vital Signs (last 24 hours): Temp Pulse Resp BP Pulse Ox 98 F 71 18 98/64 L 97 08/24/16 07:10 08/24/16 10:08/24/16 07:10 08/24/16 10:08/24/16 07:10 - Medications Medications: Current Medications Acetaminophen (Tylenol 325mg Tab) 650 mg PO Q6 PRN PRN Reason: Headache Last Admin: 08/24/16 06:58 Dose: 650 mg Aspirin (Aspirin Chewable) 81 mg PO DAILY [facility] Last Admin: 08/24/16 10:24 Dose: 81 mg Carvedilol (Coreg) 3.125 mg PO BID [facility] Last Admin: 08/24/16 10:23 Dose: Not Given Clonazepam (Klonopin) 0.5 mg PO Q8H [facility] Last Admin: 08/24/16 08:35 Dose: Not Given Famotidine (Pepcid) 20 mg PO BID [facility] Last Admin: 08/24/16 10:24 Dose: 20 mg Nitroglycerin/Dextrose (Nitroglycerin 50 Mg/250 Ml D5w) 50 mg in 250 mls @ 7.5 mls/hr IV .Q24H [facility]; 25 MCG/MIN PRN Reason: Protocol Last Admin: 08/21/16 12:00 Dose: 25 mcg/min, 7.5 mls/hr Morphine Sulfate (Morphine) 2 mg IVP Q6H PRN PRN Reason: Pain, moderate (4-7) Nitroglycerin (Nitrostat Sl Tab) 0.4 mg SL Q5M PRN PRN Reason: Pain, Mild (1-3) Last Admin: 08/21/16 11:40 Dose: 0.4 mg Quetiapine Fumarate (Seroquel Xr) 600 mg PO HS [facility] Last Admin: 08/23/16 22:19 Dose: 600 mg Ranolazine (Ranexa) 500 mg PO BID [facility] Last Admin: 08/24/16 11:49 Dose: 500 mg Rosuvastatin Calcium (Crestor) 20 mg PO HS [facility] Last Admin: 08/23/16 22:26 Dose: 20 mg Ticagrelor (Brilinta) 90 mg PO BID [facility] Last Admin: 08/24/16 10:24 Dose: 90 mg Trazodone HCl (Desyrel) 100 mg PO HS [facility] Last Admin: 08/23/16 22:20 Dose: 100 mg Venlafaxine HCl (Effexor Xr) 75 mg PO DAILY [facility] Last Admin: 08/24/16 10:18 Dose: Not Given - Labs Labs: 08/23/16 06:35 08/23/16 06:35 PT 11.4 SECONDS (9.7-12.2) 08/22/16 04:00 INR 1.0 08/22/16 04:00 APTT 57 SECONDS (21-34) H D 08/22/16 12:38 - Constitutional Appears: No Acute Distress - Head Exam Head Exam: ATRAUMATIC, NORMAL INSPECTION, NORMOCEPHALIC - Eye Exam Eye Exam: EOMI, Normal appearance, PERRL - ENT Exam ENT Exam: Mucous Membranes Moist - Neck Exam Neck Exam: Full ROM, Normal Inspection - Respiratory Exam Respiratory Exam: Clear to Ausculation Bilateral, NORMAL BREATHING PATTERN. absent: Rales, Rhonchi - Cardiovascular Exam Cardiovascular Exam: REGULAR RHYTHM, +S1, +S2. absent: Gallop, Murmur - GI/Abdominal Exam GI & Abdominal Exam: Soft, Tenderness, Normal Bowel Sounds. absent: Organomegaly - Extremities Exam Extremities Exam: Full ROM, Normal Capillary Refill. absent: Pedal Edema, Tenderness - Neurological Exam Neurological Exam: Alert, Awake, Oriented x3 - Psychiatric Exam Psychiatric exam: Normal Affect, Normal Mood - Skin Skin Exam: Normal Color, Warm Assessment and Plan - Assessment and Plan (Free Text) Assessment: Recovering NSTEMI Preserved LV function Troponin trending down 9 > 5 > 3 > 0.8 EKG: chronic infero-lateral ischemic changes not new K+/Creat WNL BP low-normal side: IVF's Other: Abd cramping & Mild transaminitis on statin : recent gall bladder surgery: Plan U/S abdomen to evaluate ASA 81 Brillinta 90 BID Coreg 3.125 BID Ranexa 500 BID Crestor 20 HS
--- NOTE | 2016-08-24 14:14 | US ---
HISTORY: Abdominal pain, hx of GB recent, inc AST COMPARISON: None. TECHNIQUE: Grayscale imaging was performed. FINDINGS: LIVER: Measures 19.3 cm. Normal echogenicity of the liver parenchyma. No mass. No intrahepatic bile duct dilatation. GALLBLADDER: Surgically absent. COMMON BILE DUCT: Measures 7.6 mm. No stones. Mildly dilated. PANCREAS: Unremarkable as visualized. No mass. No ductal dilatation. RIGHT KIDNEY: Measures 9.6cm. Normal echogenicity. No calculus, mass, or hydronephrosis. LEFT KIDNEY: Measures 9.9cm. Normal echogenicity. No calculus, mass, or hydronephrosis. SPLEEN: Normal in size and contour. No mass. AORTA: No aneurysmal dilatation. IVC: Unremarkable. OTHER FINDINGS: None. IMPRESSION: Status post cholecystectomy, mild dilatation of the common bile duct is likely related to postcholecystectomy status. Mild hepatomegaly.
[2016-08-24 16:01] VITALS: RESP 20; O2SAT 97
[2016-08-24] MEDS: QUEtiapine 200 mg XR Tab PO SCH (21:40)
[2016-08-25 01:25] VITALS: BP 108/63; TEMP 97.6
[2016-08-25] MEDS: Ranolazine 500 mg Extended Release Tablets PO SCH (11:11)
[2016-08-25] MEDS: Venlafaxine 75 mg ER Cap PO SCH (11:12)
--- NOTE | 2016-08-25 12:16 | CP.PCM.PN ---
Subjective - Date & Time of Evaluation Date of Evaluation: 08/25/16 Time of Evaluation: 12:14 - Subjective Subjective: NSTEMI Rx with MARVIN to dLCX Feels 'good' Wants to go home No CP, SOB, abdominal pain Abd U/S: post cholecystectomy changes, mild dilated bile duct no stones ( described as post op changes) Objective - Vital Signs/Intake and Output Vital Signs (last 24 hours): Temp Pulse Resp BP Pulse Ox 97.6 F 56 L 20 108/63 97 08/25/16 00:00 08/25/16 03:30 08/25/16 00:00 08/25/16 00:00 08/25/16 00:00 - Medications Medications: Current Medications Acetaminophen (Tylenol 325mg Tab) 650 mg PO Q6 PRN PRN Reason: Headache Last Admin: 08/24/16 15:53 Dose: 650 mg Aspirin (Aspirin Chewable) 81 mg PO DAILY [facility] Last Admin: 08/25/16 11:11 Dose: 81 mg Carvedilol (Coreg) 3.125 mg PO BID [facility] Last Admin: 08/25/16 11:12 Dose: 3.125 mg Clonazepam (Klonopin) 0.5 mg PO Q8H [facility] Last Admin: 08/25/16 11:23 Dose: 0.5 mg Famotidine (Pepcid) 20 mg PO BID [facility] Last Admin: 08/25/16 11:11 Dose: 20 mg Nitroglycerin/Dextrose (Nitroglycerin 50 Mg/250 Ml D5w) 50 mg in 250 mls @ 7.5 mls/hr IV .Q24H [facility]; 25 MCG/MIN PRN Reason: Protocol Last Admin: 08/21/16 12:00 Dose: 25 mcg/min, 7.5 mls/hr Morphine Sulfate (Morphine) 2 mg IVP Q6H PRN PRN Reason: Pain, moderate (4-7) Nitroglycerin (Nitrostat Sl Tab) 0.4 mg SL Q5M PRN PRN Reason: Pain, Mild (1-3) Last Admin: 08/21/16 11:40 Dose: 0.4 mg Quetiapine Fumarate (Seroquel Xr) 600 mg PO HS [facility] Last Admin: 08/24/16 21:40 Dose: 600 mg Ranolazine (Ranexa) 500 mg PO BID [facility] Last Admin: 08/25/16 11:11 Dose: 500 mg Rosuvastatin Calcium (Crestor) 20 mg PO HS [facility] Last Admin: 08/24/16 21:41 Dose: 20 mg Ticagrelor (Brilinta) 90 mg PO BID [facility] Last Admin: 08/25/16 11:11 Dose: 90 mg Trazodone HCl (Desyrel) 100 mg PO HS [facility] Last Admin: 08/24/16 21:40 Dose: 100 mg Venlafaxine HCl (Effexor Xr) 75 mg PO DAILY [facility] Last Admin: 08/25/16 11:12 Dose: 75 mg - Labs Labs: 08/23/16 06:35 08/23/16 06:35 PT 11.4 SECONDS (9.7-12.2) 08/22/16 04:00 INR 1.0 08/22/16 04:00 APTT 57 SECONDS (21-34) H D 08/22/16 12:38 - Constitutional Appears: No Acute Distress - Head Exam Head Exam: ATRAUMATIC, NORMAL INSPECTION, NORMOCEPHALIC - Eye Exam Eye Exam: EOMI, Normal appearance, PERRL - ENT Exam ENT Exam: Mucous Membranes Moist, Normal Oropharynx - Neck Exam Neck Exam: Full ROM, Normal Inspection - Respiratory Exam Respiratory Exam: Clear to Ausculation Bilateral, NORMAL BREATHING PATTERN. absent: Rhonchi, Wheezes - Cardiovascular Exam Cardiovascular Exam: REGULAR RHYTHM, +S1, +S2. absent: Gallop - Extremities Exam Extremities Exam: Normal Inspection. absent: Calf Tenderness - Neurological Exam Neurological Exam: Alert, Awake, Oriented x3 - Psychiatric Exam Psychiatric exam: Normal Affect, Normal Mood - Skin Skin Exam: Normal Color, Warm Assessment and Plan - Assessment and Plan (Free Text) Assessment: Recovering NSTEMI: No new sx's Preserved LV function Troponin trending down 9 > 5 > 3 > 0.8 EKG: chronic infero-lateral ischemic changes not new K+/Creat WNL BP normal range Other: Abd cramping & Mild transaminitis on statin : recent gall bladder surgery: U/S abdomen: No acute changes ASA 81 Brillinta 90 BID Coreg 3.125 BID Ranexa 500 BID Crestor 20 HS D/C planning; f/u with me as outpatient.
[2016-08-25 16:55] VITALS: PULSE 53
--- NOTE | 2016-08-25 17:38 | CARD ---
APPROVED REPORT EKG Measurement Heart [id number] MD [id number] <Conclusion> Normal sinus rhythm ST & T wave abnormality, consider inferior ischemia ST & T wave abnormality, consider anterolateral ischemia Abnormal ECG
--- NOTE | 2016-08-25 17:41 | CP.PCM.PN ---
Subjective - Date & Time of Evaluation Date of Evaluation: 08/25/16 Time of Evaluation: 11:00 - Subjective Subjective: Awake, alert, NAD. Objective - Vital Signs/Intake and Output Vital Signs (last 24 hours): Temp Pulse Resp BP Pulse Ox 97.6 F 53 L 20 108/63 97 08/25/16 00:00 08/25/16 07:50 08/25/16 00:00 08/25/16 00:00 08/25/16 00:00 - Labs Labs: 08/23/16 06:35 08/23/16 06:35 PT 11.4 SECONDS (9.7-12.2) 08/22/16 04:00 INR 1.0 08/22/16 04:00 APTT 57 SECONDS (21-34) H D 08/22/16 12:38 Assessment and Plan - Assessment and Plan (Free Text) Assessment: 66 yr old female with NSTEMI, back from ICU. Alert and orientedx3, denies sob or chest pains. Cleared by cardiologyst for discharge home. D/E DR Balbuena, discharge plan for today, advised to follow up in the office in 1 week.
--- NOTE | 2016-09-09 14:32 | DS ---
The patient is a 66-year-old female who has history of anxiety, bipolar disorder, mitral valve prolapse and she came in for chest pain, retrosternal, radiating to her left arm. Her pain she described felt like 10/10, squeezing. She has some associated diaphoresis. At the time she came in, the patient's troponin on admission was negative but after that started to get up, so she was admitted to ICU. Her EKG was monitored and it seemed to have inferior and lateral T wave inversion suggestive of ischemia and her ejection fraction was 45% to 50% with hypokinesia and diastolic dysfunction. She was seen by Dr. Katz, and she was transferred to [facility] to have cardiac cath, then she came back after that. FOLLOWUP CARE: She still had some discomfort that was radiating to her both arms, she was stable. Vital signs, blood pressure 109/67. She was on Tylenol, aspirin, Coreg, clonazepam, famotidine, nitroglycerin, morphine, 2 mg q.6 hours nitroglycerin patch or sublingual p.r.n. and quetiapine, Seroquel, rosuvastatin, Crestor, Brilinta, trazodone and Effexor. Her blood test showed hemoglobin 11, hematocrit 33. Patient was stable, improved. She was comfortable and she was awake, alert, oriented. Her vital signs were stable. Her lab test is the same, so she was discharged to her home and she will be followed up by Dr. Katz and by myself in my office. FINAL DIAGNOSES: Non-ST elevation myocardial infarction and bipolar disorder, and she will have to continue on all her medications. Iraida Balbuena MD
--- NOTE | 2016-09-10 14:55 | DS ---
HISTORY OF PRESENT ILLNESS: The patient came in to the emergency room complaining of chest pain and she did have positive cardiac enzymes. She was seen by Dr. Katz, Cardiology. The first set of cardiac enzymes were negative, but the second one was significantly positive and she was started on clonazepam, heparin, nitroglycerin, trazodone, and Effexor for her history of depression. PHYSICAL EXAMINATION: GENERAL: She was alert and oriented x3. VITAL SIGNS: Her vital signs were stable. She is afebrile. Her blood pressure 104/45. LUNGS: Her lungs were clear. LABORATORY DATA: Her blood count; CBC was normal. Kidney was normal. HOSPITAL COURSE: She had non-ST elevation myocardial infarction and she had an echo with ejection fraction of 45% to 50%. She was advised to go to [facility] and have cardiac cath, which was done and she came back after that. Percutaneous coronary intervention was inserted in small distal left circumflex lesion. She has nonobstructive moderate disease in the left anterior descending and after she came in, she was having some abdominal cramps, but otherwise, she was continued on her medications and her vitals were stable. Her blood test was okay. Her hemoglobin was 11.2. She was improving and she did not have any more discomfort. She was seen by the nurse practitioner and was discharged on the day of 08/25/2016. She was definitely stable. Her vital signs were okay. Her blood work was fine and she has to continue on all her medications. Follow up in my office and by Cardiology, Dr. Katz in one week. FINAL DIAGNOSES: Acute non-ST elevation myocardial infarction and coronary artery disease multiple, and status post percutaneous coronary intervention, and anxiety and depression. Iraida Balbuena MD
--- NOTE | 2016-09-12 14:37 | CARD ---
APPROVED REPORT EKG Measurement Heart [id number] <Conclusion> Normal sinus rhythm Possible Inferior infarct, age undetermined ST & T wave abnormality, consider anterolateral ischemia Abnormal ECG
--- NOTE | 2016-09-12 14:38 | CARD ---
APPROVED REPORT EKG Measurement Heart [id number] <Conclusion> Normal sinus rhythm Normal ECG
== END 2016-08-25 15:00 | disposition home or self-care (01) | DRG 282 ==
LOC: C.ER 20:37 → C.9E 22:08 → C.6T 22:36 → C.9I 08-21 10:58 → OBSVTOIN 08-21 11:13 → C.6T 08-23 21:15
PROVIDERS: ADMIT Internal Medicine; ATTEND Internal Medicine
DX: I21.4 Non-ST elevation (NSTEMI) myocardial infarction (principal); I10 Essential (primary) hypertension; I25.118 Atherosclerotic heart disease of native coronary artery with other forms of angina pectoris; F31.9 Bipolar disorder, unspecified; F41.9 Anxiety disorder, unspecified; Z87.891 Personal history of nicotine dependence; R51 Headache; R74.0 Nonspecific elevation of levels of transaminase and lactic acid dehydrogenase [LDH]